=== PATIENT | male | born 1975 | race Caucasian/White ===

== ENCOUNTER 2022-04-19 12:25 | Inpatient (IN) | payer BC ==
[2022-04-19] MEDS ORDERED: SODIUM CHLORIDE 0.9% 500 ML 500 ML IV STA (12:34)
--- NOTE | 2022-04-19 12:57 | ED ---
General Adult HPI - General Chief complaint: Neuro Symptoms/Deficit Stated complaint: Dizziness Time Seen by Provider: 04/19/22 12:30 Source: patient, EMS, RN notes reviewed, old records reviewed Mode of arrival: EMS Limitations: no limitations - History of Present Illness Initial comments: This is a 47-year-old male presents emergency Department with the complaint of increased dizziness which appears to be vertigo he states and decreased ability to ambulate. Patient states 3 weeks ago he had a stroke with left-sided residual deficits. Patient states he went to rehab and he got considerably better he was able to walk at a rehab only using a cane. Patient states he had remaining dizziness but since Tuesday the dizziness is worse and his ability to walk is less than. Patient doesn't appreciate any actual new weakness but he is finding it more difficult to walk and he thinks is because of the significant increase in the dizziness. Patient denies headache. Patient denies any fever chills or cough per patient denies any chest pain palpitations difficulty breathing shortness of breath. Patient denies abdominal pain patient denies nausea vomiting diarrhea. - Related Data Home Medications Medication Instructions Recorded Confirmed hydroCHLOROthiazide [Hydrodiuril] 25 mg PO DAILY 02/27/14 04/19/22 Aspirin EC [Ecotrin Low Dose] 81 mg PO DAILY 04/19/22 04/19/22 Atorvastatin [Lipitor] 80 mg PO HS 04/19/22 04/19/22 Diclofenac Sodium Gel [Voltaren 2 gm TOPICAL DAILY 04/19/22 04/19/22 Gel] Magnesium Oxide [Mag-Ox] 400 mg PO BID 04/19/22 04/19/22 Meclizine [Antivert] 25 mg PO TID PRN 04/19/22 04/19/22 Vitamin B2 200 mg PO BID 04/19/22 04/19/22 amLODIPine BESYLATE/BENAZEPRIL 1 cap PO DAILY 04/19/22 04/19/22 [Lotrel 10-20 mg Capsule] Allergies Allergy/AdvReac Type Severity Reaction Status Date / Time No Known Allergies Allergy Verified 04/19/22 14:08 Review of Systems ROS Statement: Those systems with pertinent positive or pertinent negative responses have been documented in the HPI. ROS Other: All systems not noted in ROS Statement are negative. Past Medical History Past Medical History: CVA/TIA, Hypertension, Sleep Apnea/CPAP/BIPAP Additional Past Medical History / Comment(s): newly dx w/sleep apnea History of Any Multi-Drug Resistant Organisms: None Reported Past Surgical History: Appendectomy, Orthopedic Surgery Past Anesthesia/Blood Transfusion Reactions: No Reported Reaction Past Psychological History: No Psychological Hx Reported Smoking Status: Former smoker Past Alcohol Use History: Occasional Past Drug Use History: None Reported General Exam - General Exam Comments Initial Comments: GENERAL: Patient is well-developed and well-nourished. Patient is nontoxic and well- hydrated and is in mild distress. ENT: Neck is soft and supple. No significant lymphadenopathy is noted. Oropharynx is clear. Moist mucous membranes. Neck has full range of motion without eliciting any pain. EYES: The sclera were anicteric and conjunctiva were pink and moist. Extraocular movements were intact and pupils were equal round and reactive to light. Eyelids were unremarkable. PULMONARY: Unlabored respirations. Good breath sounds bilaterally. No audible rales rhonchi or wheezing was noted. CARDIOVASCULAR: There is a regular rate and rhythm without any murmurs gallops or rubs. ABDOMEN: Soft and nontender with normal bowel sounds. SKIN: Skin is clear with no lesions or rashes and otherwise unremarkable. NEUROLOGIC: Patient is alert and oriented x3. Cranial nerves II through XII are grossly intact. Motor and sensory are also intact. I did not appreciate any weakness comparing one side to the other. Normal speech, volume and content. Symmetrical smile. Patient's finger to nose bilaterally. MUSCULOSKELETAL: Normal extremities with adequate strength and full range of motion. LYMPHATICS: No significant lymphadenopathy is noted PSYCHIATRIC: Normal psychiatric evaluation. Limitations: no limitations Course Vital Signs 04/19/22 12:29 Temperature 98.1 F Pulse Rate 80 Respiratory 16 Rate Blood Pressure 129/95 O2 Sat by Pulse 98 Oximetry Medical Decision Making - Medical Decision Making EKG shows sinus rhythm at 74 bpm TX interval 288 QRSs 105 QT interval 365 QTC is 393. Patient's EKG shows elevation or depression. I spoke with Dr. Frye as he agreed to look at the scans and once he looked and scans he agreed that the patient needed to be admitted and he would be consult. I spoke with Dr. Mayorga he agreed to admit the patient admitted the patient wrote admitting orders. - Lab Data Result diagrams: 04/19/22 12:44 04/19/22 12:44 Lab Results 04/19/22 04/19/22 04/19/22 Range/Units 12:44 12:44 12:44 WBC 7.1 (3.8-10.6) k/uL RBC 4.84 (4.30-5.90) m/uL Hgb 16.4 (13.0-17.5) gm/dL Hct 46.6 (39.0-53.0) % MCV 96.3 (80.0-100.0) fL MCH 33.8 (25.0-35.0) pg MCHC 35.1 (31.0-37.0) g/dL RDW 11.6 (11.5-15.5) % Plt Count 246 (150-450) k/uL MPV 6.9 Neutrophils % 54 % Lymphocytes % 30 % Monocytes % 8 % Eosinophils % 5 % Basophils % 1 % Neutrophils # 3.9 (1.3-7.7) k/uL Lymphocytes # 2.1 (1.0-4.8) k/uL Monocytes # 0.5 (0-1.0) k/uL Eosinophils # 0.4 (0-0.7) k/uL Basophils # 0.1 (0-0.2) k/uL PT 9.9 (9.0-12.0) sec INR 0.9 (<1.2) APTT 22.7 (22.0-30.0) sec Sodium 140 (137-145) mmol/L Potassium 4.0 (3.5-5.1) mmol/L Chloride 104 (98-107) mmol/L Carbon Dioxide 28 (22-30) mmol/L Anion Gap 8 mmol/L BUN 13 (9-20) mg/dL Creatinine 0.79 (0.66-1.25) mg/dL Est GFR (CKD-EPI)AfAm >90 (>60 ml/min/1.73 sqM) Est GFR (CKD-EPI)NonAf >90 (>60 ml/min/1.73 sqM) Glucose 114 H (74-99) mg/dL Calcium 9.5 (8.4-10.2) mg/dL Magnesium 2.1 (1.6-2.3) mg/dL Total Bilirubin 0.6 (0.2-1.3) mg/dL AST 35 (17-59) U/L ALT 111 H (4-49) U/L Alkaline Phosphatase 97 (38-126) U/L Troponin I (0.000-0.034) ng/mL Total Protein 6.9 (6.3-8.2) g/dL Albumin 4.2 (3.5-5.0) g/dL 04/19/22 Range/Units 12:44 WBC (3.8-10.6) k/uL RBC (4.30-5.90) m/uL Hgb (13.0-17.5) gm/dL Hct (39.0-53.0) % MCV (80.0-100.0) fL MCH (25.0-35.0) pg MCHC (31.0-37.0) g/dL RDW (11.5-15.5) % Plt Count (150-450) k/uL MPV Neutrophils % % Lymphocytes % % Monocytes % % Eosinophils % % Basophils % % Neutrophils # (1.3-7.7) k/uL Lymphocytes # (1.0-4.8) k/uL Monocytes # (0-1.0) k/uL Eosinophils # (0-0.7) k/uL Basophils # (0-0.2) k/uL PT (9.0-12.0) sec INR (<1.2) APTT (22.0-30.0) sec Sodium (137-145) mmol/L Potassium (3.5-5.1) mmol/L Chloride (98-107) mmol/L Carbon Dioxide (22-30) mmol/L Anion Gap mmol/L BUN (9-20) mg/dL Creatinine (0.66-1.25) mg/dL Est GFR (CKD-EPI)AfAm (>60 ml/min/1.73 sqM) Est GFR (CKD-EPI)NonAf (>60 ml/min/1.73 sqM) Glucose (74-99) mg/dL Calcium (8.4-10.2) mg/dL Magnesium (1.6-2.3) mg/dL Total Bilirubin (0.2-1.3) mg/dL AST (17-59) U/L ALT (4-49) U/L Alkaline Phosphatase (38-126) U/L Troponin I <0.012 (0.000-0.034) ng/mL Total Protein (6.3-8.2) g/dL Albumin (3.5-5.0) g/dL Disposition Clinical Impression: Cerebrovascular accident (CVA) Disposition: ADMITTED IP TO THIS HOSP Referrals: Gómez Mcnair DO [Doctor of Osteopathic Medicine] - 1-2 days Time of Disposition: 15:29
[2022-04-19 13:12] LABS: Basophils # (A) 0.1 k/uL (0-0.2); Basophils % (A) 1 %; Eosinophils # (A) 0.4 k/uL (0-0.7); Eosinophils % (A) 5 %; HCT 46.6 % (39.0-53.0); HGB 16.4 gm/dL (13.0-17.5); Lymphocytes # (A) 2.1 k/uL (1.0-4.8); Lymphocytes % (A) 30 %; MCH 33.8 pg (25.0-35.0); MCHC 35.1 g/dL (31.0-37.0); MCV 96.3 fL (80.0-100.0); Mean Platelet Volume 6.9; Monocytes # (A) 0.5 k/uL (0-1.0); Monocytes % (A) 8 %; Neutrophils # (A) 3.9 k/uL (1.3-7.7); Neutrophils % (A) 54 %; Platelet Count 246 k/uL (150-450); RBC 4.84 m/uL (4.30-5.90); RDW 11.6 % (11.5-15.5); WBC 7.1 k/uL (3.8-10.6)
[2022-04-19 13:26] LABS: INR 0.9 (<1.2); Partial Thromboplastin Time 22.7 sec (22.0-30.0); Prothrombin Time 9.9 sec (9.0-12.0)
[2022-04-19 13:26] LABS: ALT 111 U/L (4-49); AST 35 U/L (17-59); African American GFR (CKD) >90 (>60 ml/min/1.73 sqM); Albumin 4.2 g/dL (3.5-5.0); Alkaline Phosphatase 97 U/L (38-126); Anion Gap 8 mmol/L; Blood Urea Nitrogen 13 mg/dL (9-20); Calcium 9.5 mg/dL (8.4-10.2); Carbon Dioxide 28 mmol/L (22-30); Chloride 104 mmol/L (98-107); Glucose 114 mg/dL (74-99); Magnesium 2.1 mg/dL (1.6-2.3); Non-African American GFR(CKD) >90 (>60 ml/min/1.73 sqM); Sodium 140 mmol/L (137-145); Total Bilirubin 0.6 mg/dL (0.2-1.3); Total Protein 6.9 g/dL (6.3-8.2)
--- NOTE | 2022-04-19 13:43 | CT ---
EXAMINATION TYPE: CT brain wo con DATE OF EXAM: 04/19/2022 COMPARISON: CT head from outside institution 03/28/2022 HISTORY: Dizziness, hx stroke [address] DLP: 1177.2 mGycm. Automated Exposure Control for Dose Reduction was Utilized. TECHNIQUE: CT scan of the head is performed without contrast. FINDINGS: There is no acute intracranial hemorrhage, mass effect, or midline shift identified. The ventricles and sulci are within normal limits in size. Abnormal low attenuation in the watershed ar ea left posterior parietal and occipital lobe shows a similar appearance consistent with prior infarc t. Cerebral vascular calcifications are present, tortuous vasculature noted at the level of the mahsa en magnum, there may be some mass effect on the brainstem. The globes are intact and the visualized s inuses are clear. IMPRESSION: No acute intracranial hemorrhage, mass effect, or midline shift is seen. Evidence of viri or cerebrovascular accident, possible mass effect on the brainstem as described, MRI may be of benefi t
--- NOTE | 2022-04-19 14:13 | XR ---
EXAMINATION TYPE: XR chest 2V DATE OF EXAM: 04/19/2022 COMPARISON: Chest x-ray 03/28/2022 HISTORY: Altered mental status, dizziness TECHNIQUE: Frontal and lateral views of the chest are obtained. FINDINGS: There is no focal air space opacity, pleural effusion, or pneumothorax seen. The cardiac silhouette size is within normal limits. There are overlying cardiac leads. Patient is rotated. The osseous structures are intact. IMPRESSION: No acute cardiopulmonary process.
--- NOTE | 2022-04-19 14:13 | CT ---
EXAMINATION TYPE: CT angio head neck DATE OF EXAM: 04/19/2022 HISTORY: Dizziness, hx stroke 2 weeks ago COMPARISON: CT dated 03/28/2022 CT DLP: 631.6 mGycm. Automated Exposure Control for Dose Reduction was Utilized. TECHNIQUE: CTA scan of the head and neck is performed with IV Contrast, patient injected with 65 mL of Isovue 370, axial images are obtained, coronal and sagittal reformatted images are reviewed. 3D re constructed images are created on an independent workstation and reviewed. FINDINGS: Carotid/Vascular Structures: Scattered arterial atherosclerotic calcification and tortuosity. Aberran t right subclavian artery indenting the posterior aspect of the esophagus. 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 The right vertebral artery ends mainly as a right-sided PICA. Reduced caliber of the V4 segment of the right vertebral artery distal to the origin of the right-sided PICA. 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 Nonopacified left MCA likely due to chronic occlusion with multiple collaterals see n at that location and opacified and M2 and M3 branches, likely chronic and also appreciated previous ly. No other significant arterial stenosis, other occlusion, dissection or aneurysm. Other: Patent major intracranial venous sinuses. Enlarged nasopharyngeal and palatine tonsils, please correlate clinically. Scattered subcentimeter bilateral cervical lymph nodes. Left parieto-occipital infarct, seen previously. 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 Acute small infarct cannot be excluded by this CT scan. Further MRI assessment can be considered. Other findings as described above.
[2022-04-19] MEDS ORDERED: ATORVASTATIN 80 MG TAB PO STA (15:29)
[2022-04-19] MEDS ORDERED: CLOPIDOGREL 75 MG TAB PO STA (15:29)
[2022-04-19] MEDS ORDERED: ASPIRIN 325 MG TAB PO STA (15:47)
--- NOTE | 2022-04-19 17:14 | P.CNNES ---
History of Present Illness Consult date: 04/19/22 Requesting physician: Art Otto Reason for Consult: CVA History of Present Illness: This is a 47-year-old gentleman with medical history of recent stroke in posterior circulation with residual right sided numbness and subtle left sided weakness, tobacco use who presented to our because of dizziness and off-balance. Patient is accompanied by his family members: his and parents). Patient stated that M 03/28/2022 patient was feeling dizzy he had the left-sided weakness and right-sided numbness and the was the taken to the [facility] and from there he was a shift to [facility] for escalation of care at. He was told he had posture circulation stroke and was told he had a clot in the back of the brain and a surgery was not done to retrieve the clot since she was told was in a critical region and because of risk involved. Patient had stroke workup at [facility]. Of note patient never received IV TPA since it seems that he was outside the window. A spirin 81 Lipitor 80 mg. He was also placed on event monitor for 2 weeks. He was hospitalized there for 4 days then was discharged to rehab to 2 weeks. Patient was walk-in drastically better and was using a cane and was doing well. He had residual right face numbness as well as right-sided numbness as well from his stroke He was discharged from rehab 04/13/2022. Then that this past Tuesday patient noticed that he has burning sensation over the left cheek region then was feeling dizzy. Next day use of feeling off balance and noticed he has pain in the right ear and felt his symptoms is progressively worse as an dizziness and his balance so decided to come the hospital. Regarding his event monitor he said that he just recently returned back last week. He still smoke max half a pack a day and stop smoking since his stroke of February 2022. His father had a stroke over the eye and also in his 4 years old and was told it was possibly due to uncontrolled hypertension. Some of the work-up during this visit in our facility consisted of Initial blood presure 129/95 CBC with diff is unremarakable. ALT is 111. Otherwise rest of chemistry is unremarkable. PT, PTT and INR are within normal limits. CT of the head is reported as no acute intracranial hemorrhage, mass effect or midline shift is seen. Evidence of prior cerebrovascular accident, possible mass effect on the brainstem as described, MRI may be of benefit. In the body reported it is reported as abnormal low attenuation in the watershed area in the left posterior parietal and occipital lobe consistent with a prior infarct. There is some mass effect on the brainstem. CT angiography of the head and neck was reported as occluded V4 segment of the left vertebral artery, mainstem of the left MCA (demonstrating multiple collateral and the (and the inferior aspect of basilar artery with markedly reduced caliber of the V4 segment of the right vertebral artery stable compared to February 2022 CT angiography. EKG is reported as sinus rhythm. Normal EKG. Review of Systems Review of system: The 12 point system was reviewed and apparent positive and negative per HPI. Past Medical History Past Medical History: CVA/TIA, Hypertension, Sleep Apnea/CPAP/BIPAP Additional Past Medical History / Comment(s): newly dx w/sleep apnea History of Any Multi-Drug Resistant Organisms: None Reported Past Surgical History: Appendectomy, Orthopedic Surgery Past Anesthesia/Blood Transfusion Reactions: No Reported Reaction Past Psychological History: No Psychological Hx Reported Smoking Status: Former smoker Past Alcohol Use History: Occasional Past Drug Use History: None Reported Medications and Allergies Home Medications Medication Instructions Recorded Confirmed Type hydroCHLOROthiazide [Hydrodiuril] 25 mg PO DAILY 02/27/14 04/19/22 History Aspirin EC [Ecotrin Low Dose] 81 mg PO DAILY 04/19/22 04/19/22 History Atorvastatin [Lipitor] 80 mg PO HS 04/19/22 04/19/22 History Diclofenac Sodium Gel [Voltaren 2 gm TOPICAL DAILY 04/19/22 04/19/22 History Gel] Magnesium Oxide [Mag-Ox] 400 mg PO BID 04/19/22 04/19/22 History Meclizine [Antivert] 25 mg PO TID PRN 04/19/22 04/19/22 History Vitamin B2 200 mg PO BID 04/19/22 04/19/22 History amLODIPine BESYLATE/BENAZEPRIL 1 cap PO DAILY 04/19/22 04/19/22 History [Lotrel 10-20 mg Capsule] Allergies Allergy/AdvReac Type Severity Reaction Status Date / Time No Known Allergies Allergy Verified 04/19/22 14:08 Physical Examination - Vital Signs Vital Signs: Vital Signs Temp Pulse Resp BP Pulse Ox 04/19/22 16:11 74 15 134/99 99 04/19/22 12:29 98.1 F 80 16 129/95 98 Intake and Output 04/19/22 04/19/22 04/19/22 06:59 14:59 22:59 Other: Weight 90.718 kg GENERAL: The patient is lying in bed and is not in acute distress. CHEST: The heart rate is regular rate rhythm. No murmurs to auscultation. LUNG: Clear to auscultation bilaterally no wheezing noted throughout. Not labored breathing. ABDOMEN/GI: Bowel sounds present in all 4 quadrants. No tenderness to palpation throughout. NEUROLOGICAL: Higher mental function: The patient is awake, alert, oriented to self, place and time. Patient is following commands. No aphasia and no neglect. Cranial nerves: The pupils are round, equal and reactive to light and accommodation. Visual matos are full to confrontation throughout. Extraocular movement is intact no nystagmus is noted. Facial sensation is decreased to touch over entire right side (old). The facial strength is minimal ptosis over left eye but otherwise normal throughout. Hearing is normal bilaterally to hand rub. Tongue is midline and moved [id number] without any difficulty. No dysarthria is noted. Shoulder shrug is normal bilaterally. Motor: Gait is feeling dizzy upon standing up and talking one step so had to abort it. The strength is 5 over 5 throughout. Normal tone and bulk. Cerebellum: Normal finger to nose heel to gaudalupe bilaterally. Sensation: Sensation is decreased to touch over entire right side (old). Reflexes (right/left): 2+ throughout. Plantars are mute bilaterally. Current NIH stroke scale: Total: 1 for numbness (old) Results - Laboratory Findings CBC and BMP: 04/19/22 12:44 04/19/22 12:44 Abnormal Lab Findings: Abnormal Labs 04/19/22 12:44 Glucose 114 H ALT 111 H Assessment and Plan Assessment: * Vertigo, off balance, left V2 pain likely due to TIA (from verbeobasilar insufficiency). Current NIH is 1 (numbness--old). Rule out acute stroke on MRI Brain. * Recent stroke with residual right sided numbness and subtle left sided weakness (posterior circulation and was told had clot that was in critical region but no surgery since risk outweighed benefit according to patient over at of 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 * Tobacco use and quit end of February 2022 (use to smoke 1/2 PPD) * History of family history of stroke (father in his 40's years old and had vision issue). Plan: I loaded the patient with Plavix 300mg once then started on Plavix 75mg daily and his ASA was increased to 325mg daily (from 81mg daily). He was given loading dose of ASA 325mg in ED and Lipitor 80mg once. Will restart Lipitor 80mg qhs. Ordered MRI of the brain stat I placed the patient on every 2 hours neuro checks and recommend the patient to be in the ICU for frequent neuro checks. I already spoke with the ICU attending regarding this. Lipid panel is ordered by the ED team and I ordered a limited 2-D echo. PT OT and HEARING CARE PRACTITIONER are consulted Placed on cardiac monitoring. We'll attempt to get record from the patient recent hospital visit at [facility] find out why patient stroke workup. Patient had a recent event monitor for 2 weeks and will attempt to find out the results of his event monitor., In the meantime, ordered factor V Leiden, antithrombin III. Recommend young stroke workup as an outpatient. If the patient has any worsening of his condition recommend repeating CT of the head and CT angiography of the head and neck and activating stroke code. We'll defer the rest of the medical management of the primary team For DVT prophylaxis I started the patient on subcu heparin 5000 units every 8 hours Patient to follow-up with a neurologist within 1-2 weeks as an outpatient. The plan was discussed with the patient and his family members who are bedside. Thank you for the consultation. Skip Frye M.D. Neuro-hospitalist Time with Patient: Greater than 30
--- NOTE | 2022-04-19 18:11 | HP ---
HISTORY AND PHYSICAL DATE OF SERVICE: 04/19/2022 CHIEF COMPLAINTS: Dizziness and weakness. HISTORY OF PRESENT ILLNESS: This 47-year-old gentleman with a past medical history of hypertension and sleep apnea had an episode of possibly posterior circulation stroke in February. Patient was airlifted from [place] to [facility], where intervention was not done because it was considered too risky. The details are not available at this time. In any case, the patient went home. Patient was able to walk with a walker. The patient today noticed increased weakness and dizziness and the patient came to [facility] and was admitted for further evaluation and treatment. The patient was evaluated by neurologist, Dr. Frye, and the patient will be transferred to ICU for continuous close monitoring with q.2 neuro checks at this time. His CT angio was also done in the ER which I reviewed personally; it showed occluded segment of the left vertebral artery and multiple collaterals. Left MCA was also noted. There is no history of any fever, rigors or chills at this time. A CT brain was also done which was again reviewed personally by me. It showed no acute changes. The patient is awaiting an MRI. PAST MEDICAL HISTORY: Recent vertebrobasilar stroke as mentioned earlier, hypertension, sleep apnea. HOME MEDICATIONS: Reviewed. They include HydroDIURIL 25 mg daily. Doses and the rest of the medications are reviewed. ALLERGIES: NONE. FAMILY HISTORY: No history of heart disease or strokes in the family. SOCIAL HISTORY: Previous history of smoking. Occasional alcohol intake. REVIEW OF SYSTEMS: Fourteen-point review of systems negative except as mentioned earlier. PHYSICAL EXAMINATION: Pulse is 80, blood pressure is 120/94, respirations 16. HEENT: Conjunctivae normal. NECK: No jugular venous distention. CARDIOVASCULAR: S1, S2 muffled. RESPIRATION: Breath sounds diminished at the bases. No rhonchi. No crackles. ABDOMEN: Soft, nontender. No mass palpable. LEGS: No edema. No swelling. NERVOUS SYSTEM: Higher functions as mentioned earlier. Minimal facial weakness and incoordination, gait ataxia present. SKIN: No ulcer, rash, bleeding. JOINTS: No active deforming arthropathy. LABS: CBC within normal limits. Glucose 114. Other labs, x-rays and CT scan reviewed personally. ASSESSMENT: 1. Acute brainstem stroke causing left-sided symptoms. 2. History of recent brainstem stroke with vertebral artery occlusion. 3. Hypertension. 4. Sleep apnea. RECOMMENDATIONS AND DISCUSSION: In this 47-year-old gentleman who presented with multiple complex medical issues, as mentioned earlier, at this time I recommend continuing the current medications. Continue with antiplatelet agents. DVT prophylaxis. I would also recommend neurology consultation, neuro checks, transfer to ICU. Consult Dr. Frye. Guarded prognosis because of the multiple complex medical issues. Further recommendations to follow. A copy of this dictation is being forwarded to Dr. Moyer, who is the primary physician. MMODL / IJN: [id number] / MTDD
[2022-04-19] MEDS: SODIUM CHLORIDE 0.9% 1,000 ML IV SCH (19:46)
[2022-04-19] MEDS ORDERED: NALOXONE 0.4 MG/ML 1 ML VIAL IV PRN (19:55)
[2022-04-19 20:15] LABS: Glucose,Whole Blood 86 mg/dL (70-110)
[2022-04-19 23:15] LABS: Appearance,Urine Clear (Clear); Bilirubin,Urine Negative (Negative); Blood,Urine Negative (Negative); Color,Urine Yellow; Glucose,Urine (UA) Negative (Negative); Ketones,Urine Negative (Negative); Leukocyte Esterase,Urine Negative (Negative); Nitrite,Urine Negative (Negative); PH, Urine 6.5 (5.0-8.0); Protein,Urine Negative (Negative); Specific Gravity,Urine 1.023 (1.001-1.035); Urobilinogen,Urine <2.0 mg/dL (<2.0)
[2022-04-19] MEDS: HEPARIN SODIUM,PORCINE/PF 5,000 UNIT/0.5 ML SYRINGE SQ SCH (23:23)
[2022-04-20] MEDS: SODIUM CHLORIDE 0.9% 1,000 ML IV SCH ×2 (05:48→20:16)
--- NOTE | 2022-04-20 06:14 | P.CNPUL ---
History of Present Illness Consult date: 04/20/22 Requesting physician: Nikita Mayorga Reason for consult: other Chief complaint: CVA. History of present illness: Pulmonary/critical care consult dated 04/20/2022. 47-year-old male who presented to the emergency department, with complaints of increased dizziness, and vertigo. He also admitted to being unsteady on his feet, with difficulty in ambulating. The patient apparently had a CVA 3 weeks ago and was at [facility]. I believe this was March 28. The patient was evaluated in our emergency room on April 19. The patient had right-sided weakness and numbness. Seen by neurology, and neurologist requested a bed for observation in the ICU. Currently, he's feeling reasonably well. He is not requiring any supplemental oxygen. He is getting saline at 75 mL an hour. He has a history of hypertension, sleep apnea, hyperlipidemia, and chronic tobacco dependence. CBC is normal. Sodium 140, potassium 4, chlorides 104, CO2 28, with a normal anion gap, BUN, and creatinine. The rest of his comprehensive metabolic profile looks normal. Urine is negative. Brain CT shows no acute intracranial hemorrhage, mass effect, or midline shift. There is an abnormal area noted in the left posterior parietal and occipital lobe, consistent with a prior infarct. CT angiogram showed an occluded V4 segment of the left vertebral artery, main stem of the left MCA, and the inferior aspect of the basilar artery with markedly reduced caliber V4 segment. Chest x-ray is normal. Review of Systems REVIEW OF SYSTEMS: CONSTITUTIONAL: [Negative.] NEUROLOGIC: Dizziness, weakness, vertigo, and unsteady gait. HEENT: [ Negative.] CARDIAC: [Negative.] PULMONARY: [Negative.] GI: [Negative.] : [Negative.] RHEUMATOLOGIC: [ Negative.] IMMUNOLOGIC: [ Negative.] ENDOCRINE: [Negative. ] DERMATOLOGIC: [Negative.] Past Medical History Past Medical History: CVA/TIA, Hypertension, Sleep Apnea/CPAP/BIPAP Additional Past Medical History / Comment(s): newly dx w/sleep apnea History of Any Multi-Drug Resistant Organisms: None Reported Past Surgical History: Appendectomy, Orthopedic Surgery Past Anesthesia/Blood Transfusion Reactions: No Reported Reaction Smoking Status: Former smoker Medications and Allergies Home Medications Medication Instructions Recorded Confirmed Type hydroCHLOROthiazide [Hydrodiuril] 25 mg PO DAILY 02/27/14 04/19/22 History Aspirin EC [Ecotrin Low Dose] 81 mg PO DAILY 04/19/22 04/19/22 History Atorvastatin [Lipitor] 80 mg PO HS 04/19/22 04/19/22 History Diclofenac Sodium Gel [Voltaren 2 gm TOPICAL DAILY 04/19/22 04/19/22 History Gel] Magnesium Oxide [Mag-Ox] 400 mg PO BID 04/19/22 04/19/22 History Meclizine [Antivert] 25 mg PO TID PRN 04/19/22 04/19/22 History Vitamin B2 200 mg PO BID 04/19/22 04/19/22 History amLODIPine BESYLATE/BENAZEPRIL 1 cap PO DAILY 04/19/22 04/19/22 History [Lotrel 10-20 mg Capsule] Allergies Allergy/AdvReac Type Severity Reaction Status Date / Time No Known Allergies Allergy Verified 04/19/22 14:08 Physical Exam Osteopathic Statement: *. No significant issues noted on an osteopathic structural exam other than those noted in the History and Physical/Consult. Vitals: Vital Signs Temp Pulse Pulse Resp BP BP Pulse Ox 04/20/22 05:00 66 16 92/71 97 04/20/22 04:00 98.1 F 67 20 104/71 96 04/20/22 03:00 71 16 103/72 95 04/20/22 02:00 71 16 109/76 95 04/20/22 01:00 74 16 97/60 94 L 04/20/22 00:00 98.2 F 77 13 112/76 95 04/19/22 23:00 76 16 123/87 94 L 04/19/22 22:00 76 17 139/103 94 L 04/19/22 21:00 77 15 131/102 96 04/19/22 20:18 96 04/19/22 20:00 98.3 F 79 10 L 131/102 96 04/19/22 18:36 74 15 103/75 100 04/19/22 16:11 74 15 134/99 99 04/19/22 12:29 98.1 F 80 16 129/95 98 Intake and Output 04/19/22 04/19/22 04/20/22 14:59 22:59 06:59 Intake Total 75 525 Output Total 750 Balance 75 -225 Intake: Intake, IV Titration 75 525 Amount Sodium Chloride 0.9% 1, 75 525 000 ml @ 75 mls/hr IV . [id number] [facility] Rx#:[id number] Output: Urine 750 Other: Voiding Method Urinal Urinal # Voids 1 Weight 90.718 kg 89 kg 91.7 kg No acute distress, oriented 3. HEENT examination is grossly unremarkable. Neck supple. Full range of motion. No adenopathy thyromegaly or neck vein distention. Cardiovascular examination reveals regular rhythm rate. S1-S2 normal. No S3 or S4. No discernible murmur noted. Heart rate 66 bpm. Lungs reveal clear breath sounds. Breath sounds are equal bilaterally. No adventitious lung sounds including wheezes rhonchi or crackles. Abdomen soft bowel sounds are heard. No masses or tenderness. Extremities are intact. No cyanosis clubbing or edema. Skin is without rash or lesion. Neurologic examination is grossly normal. 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 History of hypertension. History of sleep apnea syndrome. History of hyperlipidemia. Plan: Plan dated 04/20/2022. The patient was admitted to the intensive care unit for further monitoring and management. The patient apparently is doing relatively well according to the nurses and the patient himself. He is currently on room air. He is getting saline at 75 mL an hour. He's had no worsening of neurologic symptoms. Additional recommendations and suggestions are forthcoming. Neurology has seen the patient. Prognosis is guarded. The patient should probably be transferred back to the [facility]. Time with Patient: Greater than 30
[2022-04-20 07:54] LABS: Basophils # (A) 0.1 k/uL (0-0.2); Basophils % (A) 1 %; Eosinophils # (A) 0.3 k/uL (0-0.7); Eosinophils % (A) 5 %; HCT 44.7 % (39.0-53.0); HGB 15.5 gm/dL (13.0-17.5); Lymphocytes # (A) 1.7 k/uL (1.0-4.8); Lymphocytes % (A) 29 %; MCHC 34.7 g/dL (31.0-37.0); Mean Platelet Volume 6.8; Monocytes # (A) 0.5 k/uL (0-1.0); Monocytes % (A) 8 %; Neutrophils # (A) 3.1 k/uL (1.3-7.7); Neutrophils % (A) 53 %; Platelet Count 243 k/uL (150-450); RBC 4.57 m/uL (4.30-5.90); RDW 11.6 % (11.5-15.5); WBC 5.8 k/uL (3.8-10.6)
[2022-04-20 08:04] LABS: African American GFR (CKD) >90 (>60 ml/min/1.73 sqM); Anion Gap 12 mmol/L; Blood Urea Nitrogen 16 mg/dL (9-20); Calcium 8.9 mg/dL (8.4-10.2); Carbon Dioxide 24 mmol/L (22-30); Chloride 104 mmol/L (98-107); Glucose 124 mg/dL (74-99); Non-African American GFR(CKD) >90 (>60 ml/min/1.73 sqM); Sodium 140 mmol/L (137-145)
--- NOTE | 2022-04-20 09:24 | P.PN ---
Subjective Progress Note Date: 04/20/22 The patient is seen at bedside and feels he is doing drastically better today compared to yesterday. He stated yesterday prior to coming to hospital he was having diplopia, dizziness and off balance and feels better. He has some hiccups since his old stroke. Denies of any new neurological issues. Pending MRI Brain. Objective - Vital Signs Vital signs: Vital Signs Temp 97.8 F 04/20/22 08:00 Pulse 75 04/20/22 09:00 Resp 12 04/20/22 09:00 BP 123/89 04/20/22 09:00 Pulse Ox 96 04/20/22 09:00 FiO2 Intake & Output 04/19/22 04/20/22 04/20/22 18:59 06:59 18:59 Intake Total 675 150 Output Total 750 0 Balance -75 150 Weight 90.718 kg 91.7 kg Intake: IV 75 Sodium Chloride 0.9% 1, 75 000 ml @ 75 mls/hr IV . [id number] [facility] Rx#:[id number] Intake, IV Titration 675 75 Amount Sodium Chloride 0.9% 1, 675 75 000 ml @ 75 mls/hr IV . [id number] [facility] Rx#:[id number] Output: Urine 750 0 Other: Voiding Method Urinal Urinal # Voids 1 - Exam GENERAL: The patient is lying in bed and is not in acute distress. NEUROLOGICAL: Higher mental function: The patient is awake, alert, oriented to self, place and time. Patient is following commands. No aphasia and no neglect. Cranial nerves: The pupils are round, equal and reactive to light and accommodation. Visual matos are full to confrontation throughout. Extraocular movement is intact no nystagmus is noted. Facial sensation is decreased to touch over entire right side (old). The facial strength is minimal ptosis over left eye but otherwise normal throughout. Hearing is normal bilaterally to hand rub. Tongue is midline and moved [id number] without any difficulty. No dysarthria is noted. Shoulder shrug is normal bilaterally. Motor: The strength is 5 over 5 throughout. Normal tone and bulk. Cerebellum: Normal finger to nose heel to guadalupe bilaterally. Sensation: Sensation is decreased to touch over entire right side (old). Reflexes (right/left): 2+ throughout. Plantars are mute bilaterally. Some of the work-up during this visit in our facility consisted of: CT of the head is reported as no acute intracranial hemorrhage, mass effect or midline shift is seen. Evidence of prior cerebrovascular accident, possible mass effect on the brainstem as described, MRI may be of benefit. In the body reported it is reported as abnormal low attenuation in the watershed area in the left posterior parietal and occipital lobe consistent with a prior infarct. There is some mass effect on the brainstem. CT angiography of the head and neck was reported as occluded V4 segment of the left vertebral artery, mainstem of the left MCA (demonstrating multiple collateral and the (and the inferior aspect of basilar artery with markedly reduced caliber of the V4 segment of the right vertebral artery stable compared to February 2022 CT angiography. EKG is reported as sinus rhythm. Normal EKG. - Labs CBC & Chem 7: 04/20/22 07:13 04/20/22 07:13 Labs: Abnormal Lab Results - Last 24 Hours (Table) 04/19/22 04/20/22 Range/Units 12:44 07:13 Glucose 114 H 124 H (74-99) mg/dL ALT 111 H (4-49) U/L Assessment and Plan Assessment: * Vertigo, off balance, diplopia, left V2 pain likely due to TIA (from verbeobasilar insufficiency). Current NIH is 1 (numbness--old). Rule out acute stroke on MRI Brain. 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 * Tobacco use and quit end of February 2022 (use to smoke 1/2 PPD) * History of family history of stroke (father in his 40's years old and had vision issue). Plan: Continue Plavix 75mg daily (started during this admission) and ASA 325mg daily (was increased during this admission from 81mg daily). Conttinue Lipitor 80mg qhs. Ordered MRI of the brain stat and is pending. Continue every 2 hours neuro checks Lipid panel and limited 2-D echo: pending. PT OT and [employer] are consulted Continue cardiac monitoring. Pending record from the patient recent hospital visit at [facility] find out why patient stroke workup. Patient had a recent event monitor for 2 weeks and will attempt to find out the results of his event monitor., In the meantime, ordered factor V Leiden, antithrombin III. Recommend young stroke workup as an outpatient. Recommend patient to follow-up with Dr. Pedraza (neuro-intervention) [id number]. If the patient has any worsening of his condition recommend repeating CT of the head and CT angiography of the head and neck and activating stroke code. We'll defer the rest of the medical management of the primary team For DVT prophylaxis On subcu heparin 5000 units every 8 hours Patient to follow-up with a neurologist within 1-2 weeks as an outpatient (he will attempt to follow-up with [facility] Neurology team). If the patient continues to be doing well he can be transferred to neurology floors. The plan was discussed with the patient and his nurse. Skip Frye M.D. Neuro-hospitalist Time with Patient: Less than 30
[2022-04-20] MEDS: HEPARIN SODIUM,PORCINE/PF 5,000 UNIT/0.5 ML SYRINGE SQ SCH ×3 (09:28→23:03)
[2022-04-20] MEDS: ASPIRIN 325 MG TAB PO SCH (09:28)
[2022-04-20] MEDS: PANTOPRAZOLE 40 MG/10 ML VIAL IV SCH (09:28)
--- NOTE | 2022-04-20 11:10 | MR ---
MR brain without contrast HISTORY: Stroke, dizziness, vertebrobasilar insufficiency Multiplanar multisequence imaging through the brain Correlation to CT brain 04/19/2022 Previously identified mass effect on the region of the medulla due to the tortuous vertebrobasilar sy stem seen on prior CT is again noted. There is no restricted diffusion. The site of patient's previou s infarct is noted on CT the posterior occipital, left parietal region there is some scoliosis, incre ased signal on T2 and inversion recovery sequence. External capsule region show some probable encepha lomalacia on the left. There are expected vascular flow voids. Cerebellopontine angles, corpus callos um, pituitary, cervical medullary junction are within normal limits. There is no hemorrhage or hydroc ephalus. Orbits show symmetric appearance. Ethmoid air cells and maxillary sinuses show some mild inf lammatory change. IMPRESSION: Dolichoectasia vertebral basilar system, correlate for compressive symptoms at the level of the lingula. Chronic cerebral vascular accident change again noted.
[2022-04-20 11:16] LABS: Chol/HDL Ratio 3.08 Ratio; LDL Cholesterol,Calculated 35.5 mg/dL (0.0-131.0)
--- NOTE | 2022-04-20 11:27 | CA ---
Transthoracic Echo Report Name: Iggy Pollard Age: 47 Gender: M : 1975 Exam Date: 04/20/2022 09:34 Exam Location: [place] Echo Ht (in): 72 Wt (lb): 202 Ordering Physician: Skip Frye MD Attending/Referring Phys: Rubber Turner Taya Payton RDCS Procedure CPT: Indications: limited for stroke. Cardiac Hx: Echo done at [facility] 04/[facility]: Limited Echo for TIA Technical Quality: Good Contrast 1: N/A Total Dose (mL): Contrast 2: Total Dose (mL): MEASUREMENTS (Male / Female) Normal Values FINDINGS Left Ventricle Normal Left ventricular size, systolic function with no obvious regional wall motion abnormalities.left ventricular ejection fraction is estimated at 50-55 %. Right Ventricle Right Atrium Left Atrium Can't exclude possible PFO. Mitral Valve Aortic Valve Tricuspid Valve Pulmonic Valve Pericardium Aorta Normal size aortic root and proximal ascending aorta. CONCLUSIONS Normal LV size and systolic function Previewed by: Dr. Troy Vera MD (Electronically Signed) Final Date: 20 April 2022 11:26
[2022-04-20] MEDS ORDERED: MECLIZINE 25 MG TAB PO PRN (12:07)
[2022-04-20] MEDS: hydroCHLOROthiazide 25 MG TAB PO SCH (12:36)
[2022-04-20] MEDS: lisinopriL 20 MG TAB PO SCH (12:36)
[2022-04-20] MEDS: amLODIPine 10 MG TAB PO SCH (12:36)
--- NOTE | 2022-04-20 15:10 | PN ---
PROGRESS NOTE DATE OF SERVICE: 04/20/2022 This 47-year-old gentleman who had a previous vertebrobasilar stroke was evaluated at [facility]. Patient having increasing weakness suggestive of stroke. The patient came to [facility] and being closely monitored in ICU at this time with neuro checks. Neurology following the patient closely. MRA showed a dolichoectasia vertebrobasilar system and features of strokes also. The patient being closely monitored. PAST MEDICAL HISTORY: Reviewed. REVIEW OF SYSTEMS: 14-point review of systems is negative except as mentioned earlier. CURRENT MEDICATIONS: Reviewed and include: aspirin, Lipitor, doses reviewed. PHYSICAL EXAMINATION: Pulse is 81, blood pressure 133/89, respirations 20. HEENT: Conjunctivae is normal. Neck: No JVD. Cardiovascular: S1, S2 muffled. Respirations: Breath sounds diminished in the bases. Scattered rhonchi. Abdomen: Soft. Legs are no edema. Nervous system: Finger-nose incoordination, left hand. Gait ataxia present. LABS: CBC within normal limits. Cholesterol is 194, HDL is 35.7. ASSESSMENT: 1. Acute brainstem stroke causing left-sided symptoms. 2. History of recent brainstem stroke with vertebrobasilar artery occlusion. 3. Hypertension. 4. Sleep apnea. 5. Dolichoectasia of the vertebrobasilar system. 6. Gait dysfunction. RECOMMENDATIONS AND DISCUSSION: Recommend to continue current medications, management and symptomatic treatment. Continue the antiplatelet agents. Continue with Lipitor and closely follow with Neurology. Guarded prognosis. Further recommendations to follow. DVT prophylaxis. See orders for details. I discussed with the patient. Prognosis guarded. I also recommend close followup with [facility] Neurology. Discussed with family and patient. MMODL / IJN: [id number] /
[2022-04-20] MEDS: MAGNESIUM OXIDE 400 MG TAB PO SCH (20:11)
[2022-04-20] MEDS ORDERED: VITAMIN B2 PO SCH (21:00)
[2022-04-20] MEDS ORDERED: ATORVASTATIN 80 MG TAB PO SCH (21:00)
[2022-04-21 08:09] LABS: Basophils # (A) 0.1 k/uL (0-0.2); Basophils % (A) 1 %; Eosinophils # (A) 0.3 k/uL (0-0.7); Eosinophils % (A) 6 %; HCT 45.8 % (39.0-53.0); HGB 15.5 gm/dL (13.0-17.5); Lymphocytes # (A) 1.6 k/uL (1.0-4.8); Lymphocytes % (A) 28 %; MCH 32.9 pg (25.0-35.0); MCHC 33.7 g/dL (31.0-37.0); MCV 97.5 fL (80.0-100.0); Mean Platelet Volume 6.8; Monocytes # (A) 0.4 k/uL (0-1.0); Monocytes % (A) 7 %; Neutrophils # (A) 3.2 k/uL (1.3-7.7); Neutrophils % (A) 57 %; Platelet Count 258 k/uL (150-450); RDW 11.5 % (11.5-15.5); WBC 5.7 k/uL (3.8-10.6)
[2022-04-21 08:36] LABS: African American GFR (CKD) >90 (>60 ml/min/1.73 sqM); Anion Gap 7 mmol/L; Blood Urea Nitrogen 16 mg/dL (9-20); Calcium 8.9 mg/dL (8.4-10.2); Carbon Dioxide 27 mmol/L (22-30); Chloride 103 mmol/L (98-107); Glucose 221 mg/dL (74-99); Non-African American GFR(CKD) >90 (>60 ml/min/1.73 sqM); Potassium 3.9 mmol/L (3.5-5.1); Sodium 137 mmol/L (137-145)
[2022-04-21] MEDS ORDERED: CLOPIDOGREL 75 MG TAB PO SCH (09:00)
[2022-04-21] MEDS: lisinopriL 20 MG TAB PO SCH (09:33)
[2022-04-21] MEDS: ASPIRIN 325 MG TAB PO SCH (09:33)
[2022-04-21] MEDS: hydroCHLOROthiazide 25 MG TAB PO SCH (09:33)
[2022-04-21] MEDS: PANTOPRAZOLE 40 MG/10 ML VIAL IV SCH (09:33)
[2022-04-21] MEDS: HEPARIN SODIUM,PORCINE/PF 5,000 UNIT/0.5 ML SYRINGE SQ SCH (09:33)
[2022-04-21] MEDS: SODIUM CHLORIDE 0.9% 1,000 ML IV SCH (09:34)
[2022-04-21] MEDS: amLODIPine 10 MG TAB PO SCH (09:34)
[2022-04-21] MEDS: MAGNESIUM OXIDE 400 MG TAB PO SCH (09:34)
--- NOTE | 2022-04-21 10:40 | P.PN ---
Subjective Progress Note Date: 04/21/22 Principal diagnosis: CVA. Pulmonary/critical care consult dated 04/20/2022. 47-year-old male who presented to the emergency department, with complaints of increased dizziness, and vertigo. He also admitted to being unsteady on his feet, with difficulty in ambulating. The patient apparently had a CVA 3 weeks ago and was at [facility]. I believe this was March 28. The patient was evaluated in our emergency room on April 19. The patient had right-sided weakness and numbness. Seen by neurology, and neurologist requested a bed for observation in the ICU. Currently, he's feeling reasonably well. He is not requiring any supplemental oxygen. He is getting saline at 75 mL an hour. He has a history of hypertension, sleep apnea, hyperlipidemia, and chronic tobacco dependence. CBC is normal. Sodium 140, potassium 4, chlorides 104, CO2 28, with a normal anion gap, BUN, and creatinine. The rest of his comprehensive metabolic profile looks normal. Urine is negative. Brain CT shows no acute intracranial hemorrhage, mass effect, or midline shift. There is an abnormal area noted in the left posterior parietal and occipital lobe, consistent with a prior infarct. CT angiogram showed an occluded V4 segment of the left vertebral artery, main stem of the left MCA, and the inferior aspect of the basilar artery with markedly reduced caliber V4 segment. Chest x-ray is normal. Progress note dated 04/21/2022. 47-year-old male seen yesterday in consultation for posterior circulation CVA and vertebrobasilar insufficiency. The patient is doing much better. He's on room air. No IV fluids. The patient's neurologic complaints have dissipated. The patient will be following up with a neurologist at [facility]. He has a history of hypertension, sleep apnea, hyperlipidemia, and chronic tobacco dependence. The patient is counseled about the importance of tobacco cessation. The patient may be discharged today, or transferred down to the floor. CBC is normal. Electrolyte profile is normal. Blood glucose 221. Brain MRI done yesterday shows significant abnormalities in the vertebrobasilar system, with chronic cerebrovascular changes Objective - Vital Signs Vital signs: Vital Signs Temp 98.3 F 04/21/22 04:00 Pulse 80 04/21/22 07:00 Resp 18 04/21/22 07:00 BP 100/70 04/21/22 07:00 Pulse Ox 94 L 04/21/22 00:00 FiO2 Intake & Output 04/20/22 04/21/22 04/21/22 18:59 06:59 18:59 Intake Total 875 1280 Output Total 600 Balance 275 1280 Weight 93.8 kg Intake: IV 300 Sodium Chloride 0.9% 1, 300 000 ml @ 75 mls/hr IV . [id number] [facility] Rx#:[id number] Intake, IV Titration 75 Amount Sodium Chloride 0.9% 1, 75 000 ml @ 75 mls/hr IV . [id number] [facility] Rx#:[id number] Oral 500 1280 Output: Urine 600 Other: Voiding Method Urinal Urinal # Voids 2 0 - Exam No acute distress, oriented 3. HEENT examination is grossly unremarkable. Neck supple. Full range of motion. No adenopathy thyromegaly or neck vein distention. Cardiovascular examination reveals regular rhythm rate. S1-S2 normal. No S3 or S4. No discernible murmur noted. Heart rate 80 bpm. Lungs reveal clear breath sounds. Breath sounds are equal bilaterally. No adventitious lung sounds including wheezes rhonchi or crackles. Abdomen soft bowel sounds are heard. No masses or tenderness. Extremities are intact. No cyanosis clubbing or edema. Skin is without rash or lesion. Neurologic examination is grossly normal. 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 History of hypertension. History of sleep apnea syndrome. History of hyperlipidemia. Plan: Plan dated 04/20/2022. The patient was admitted to the intensive care unit for further monitoring and management. The patient apparently is doing relatively well according to the nurses and the patient himself. He is currently on room air. He is getting saline at 75 mL an hour. He's had no worsening of neurologic symptoms. Additional recommendations and suggestions are forthcoming. Neurology has seen the patient. Prognosis is guarded. The patient should probably be transferred back to the [facility]. Plan dated 04/21/2000 The patient's doing very well. The patient may be discharged from the hospital, or transferred down to the general medical floor. The pulmonary critical care standpoint, the patient's very stable. Moving forward, we'll see the patient on ly as needed. Labs x-rays and medications are reviewed. Prognosis is guarded. The patient will follow with a neurologist from the [facility]. Time with Patient: Less than 30
[2022-04-21 11:36] LABS: Anti-Thrombin III Antigen 93 % (80 - 120)
[2022-04-21 12:51] VITALS: BP 117/83; RESP 13; TEMP 98
--- NOTE | 2022-04-21 14:40 | P.PN ---
Subjective Progress Note Date: 04/21/22 The patient is seen at bedside and continues to be doing well compared to his initial presentation. Objective - Vital Signs Vital signs: Vital Signs Temp 98.0 F 04/21/22 12:00 Pulse 73 04/21/22 13:00 Resp 13 04/21/22 12:00 BP 117/83 04/21/22 12:00 Pulse Ox 98 04/21/22 12:00 FiO2 Intake & Output 04/20/22 04/21/22 04/21/22 18:59 06:59 18:59 Intake Total 875 1280 Output Total 600 0 Balance 275 1280 0 Weight 93.8 kg Intake: IV 300 Sodium Chloride 0.9% 1, 300 000 ml @ 75 mls/hr IV . [id number] CONSUELO Rx#:[id number] Intake, IV Titration 75 Amount Sodium Chloride 0.9% 1, 75 000 ml @ 75 mls/hr IV . [id number] CONSUELO Rx#:[id number] Oral 500 1280 Output: Urine 600 0 Other: Voiding Method Urinal Urinal Toilet # Voids 2 0 1 # Bowel Movements 1 - Exam GENERAL: The patient is lying in bed and is not in acute distress. NEUROLOGICAL: Higher mental function: The patient is awake, alert, oriented to self, place and time. Patient is following commands. No aphasia and no neglect. Cranial nerves: The pupils are round, equal and reactive to light and accommodation. Visual matos are full to confrontation throughout. Extraocular movement is intact no nystagmus is noted. Facial sensation is decreased to touch over entire right side (old). The facial strength is minimal ptosis over left eye but otherwise normal throughout. Hearing is normal bilaterally to hand rub. Tongue is midline and moved [id number] without any difficulty. No d ysarthria is noted. Shoulder shrug is normal bilaterally. Motor: The strength is 5 over 5 throughout. Normal tone and bulk. Cerebellum: Normal finger to nose heel to guadalupe bilaterally. Sensation: Sensation is decreased to touch over entire right side (old). Reflexes (right/left): 2+ throughout. Plantars are mute bilaterally. Some of the work-up during this visit in our facility consisted of: Lipid panel: TG 194, Cholestrol 110, LDL35 and HDL 35. CT of the head is reported as no acute intracranial hemorrhage, mass effect or midline shift is seen. Evidence of prior cerebrovascular accident, possible mass effect on the brainstem as described, MRI may be of benefit. In the body reported it is reported as abnormal low attenuation in the watershed area in the left posterior parietal and occipital lobe consistent with a prior infarct. There is some mass effect on the brainstem. CT angiography of the head and neck was reported as occluded V4 segment of the left vertebral artery, mainstem of the left MCA (demonstrating multiple collateral and the (and the inferior aspect of basilar artery with markedly reduced caliber of the V4 segment of the right vertebral artery stable compared to February [address]22 CT angiography. EKG is reported as sinus rhythm. Normal EKG. 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 Chronic cerebral vascular accident change again noted. - Labs CBC & Chem 7: 04/21/22 07:52 04/21/22 07:52 Labs: Abnormal Lab Results - Last 24 Hours (Table) 04/21/22 Range/Units 07:52 Glucose 221 H (74-99) mg/dL Assessment and Plan Assessment: * TIA (sympotoms of Vertigo, off balance, diplopia, left V2 pain likely due to TIA (from verbeobasilar insufficiency). Current NIH is 1 (numbness--old). 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 * Tobacco use and quit end of February 2022 (use to smoke 1/2 PPD) * History of family history of stroke (father in his 40's years old and had vision issue). Plan: Continue Plavix 75mg daily (started during this admission) and ASA 325mg daily (was increased during this admission from 81mg daily). Continue Lipitor 80mg qhs. 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 Chronic cerebral vascular accident change again noted. I reviewed the images with Dr. Landers and he states that the patient appears to have no acute or subacute ischemia over the left medullary and it seems more old. He does agree there is a compression on the left medullary because of dolchoectasia vertebral basilary system. I discussed the case with Dr. Moya and he reviewed images and feels he rupture plaques on brainstem vs ???rupture aneurysm. He stated to continue ASA and Plavix. He will see patient as outpatient within 4-6 and he will possible get further imaging. Ordered factor V Leiden, antithrombin III, protein C/S antigen and activity, MMA, homocystein, lupus anticoagulant, MMA, Prothrombin 2010, VW factor, lupus anticoagulant, DEEDEE, Recommend other young stroke workup as an outpatient. Recommend patient to follow-up with Dr. Moya (neuro-intervention) [phone]. Continue every neuro checks PT OT and FORM GRADER OPERATOR are consulted Continue cardiac monitoring. Pending record from the patient recent hospital visit at [facility] find out why patient stroke workup. Patient had a recent event monitor for 2 weeks and will attempt to find out the results of his event monitor., We'll defer the rest of the medical management of the primary team For DVT prophylaxis On subcu heparin 5000 units every 8 hours Patient to follow-up with a neurologist within 1-2 weeks as an outpatient (he will attempt to follow-up with [facility] Neurology team). The plan is discussed with patient and his nurse. Otherwise no further work-up and patient is clear for discharge. If the patient has any worsening of his symptoms he is to come back to ED and he will intervention neurology team to be contacted to facilitate transfer for escalation of care per Dr. Moya. Skip Frye M.D. Neuro-hospitalist Time with Patient: Less than 30
[2022-04-21 15:05] VITALS: PULSE 76
--- NOTE | 2022-04-22 10:14 | P.DS ---
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 Patient will follow-up with Dr. Moyer in the outpatient setting upon discharge. Patient is to continue aspirin and Plavix and statin and will need neurology follow-up in the outpatient setting. Total time taken is greater than 35 minutes. Hospital course This is -year-old male who was recently admitted with increasing weakness suggestive of a stroke and has a previous vertebrobasilar stroke evaluated at the [facility]. Patient was seen and evaluated by neurology here recommending continued outpatient follow-up and patient will be continued on aspirin and Plavix along with statin. Patient also seeking second opinions other than [facility] and resources were provided for neurology interventionalists. Patient is feeling better and would like to go home today. at the bedside and questions and concerns were answered. Patient instructed to continue to keep scheduled appointments and has appointment with Dr. Moyer his primary care provider on Tuesday. Currently no reports of chest pain, shortness of breath, or palpitations. Patient is afebrile. No reports of nausea or vomiting and patient is tolerating diet. Patient will be discharged home today. On exam vital signs are stable. Cardio S1, S2 are muffled. Respiratory system shows diminished breath sounds at the bases with no wheezing or rhonchi noted. Abdomen is soft and nontender. Nervous system shows no focal deficits. Please refer to medication reconciliation sheet for a list of medications. The impression and plan of care has been dictated by Rakel Vargas, Nurse Practitioner as directed. Dr. Mukesh MD I have performed a history and examination and MDM of this patient, discussed the same with the dictator, and agree with the dictator's assessment and plan as written ,documented as a scribe. Based on total visit time, I have performed more than 50% of the visit. Patient Condition at Discharge: Stable Plan - Discharge Summary Discharge Rx Participant: No New Discharge Prescriptions: New Aspirin 325 mg PO DAILY #30 tab Clopidogrel [Plavix] 75 mg PO DAILY 30 Days #30 tab Continue hydroCHLOROthiazide [Hydrodiuril] 25 mg PO DAILY Magnesium Oxide [Mag-Ox] 400 mg PO BID amLODIPine BESYLATE/BENAZEPRIL [Lotrel 10-20 mg Capsule] 1 cap PO DAILY Vitamin B2 200 mg PO BID Diclofenac Sodium Gel [Voltaren Gel] 2 gm TOPICAL DAILY Meclizine [Antivert] 25 mg PO TID PRN PRN Reason: DIZZINESS Atorvastatin [Lipitor] 80 mg PO HS Discontinued Aspirin EC [Ecotrin Low Dose] 81 mg PO DAILY Discharge Medication List hydroCHLOROthiazide [Hydrodiuril] 25 mg PO DAILY 02/27/14 [History] Atorvastatin [Lipitor] 80 mg PO HS 04/19/22 [History] Diclofenac Sodium Gel [Voltaren Gel] 2 gm TOPICAL DAILY 04/19/22 [History] Magnesium Oxide [Mag-Ox] 400 mg PO BID 04/19/22 [History] Meclizine [Antivert] 25 mg PO TID PRN 04/19/22 [History] Vitamin B2 200 mg PO BID 04/19/22 [History] amLODIPine BESYLATE/BENAZEPRIL [Lotrel 10-20 mg Capsule] 1 cap PO DAILY 04/19/22 [History] Aspirin 325 mg PO DAILY #30 tab 04/21/22 [Rx] Clopidogrel [Plavix] 75 mg PO DAILY 30 Days #30 tab 04/21/22 [Rx] Follow up Appointment(s)/Referral(s): Gómez Mcnair DO [Doctor of Osteopathic Medicine] - 1-2 days () Kilo Moyer MD [Primary Care Provider] - 1 Week Patient Instructions/Handouts: Transient Ischemic Attack (DC) Activity/Diet/Wound Care/Special Instructions: Please call Dr. Orozco, neuro-intervention, to make a follow up appointment for 1-2 weeks [phone] Keep appointment with your [facility] neurologist. Continue taking medications as prescribed Follow-up with primary care provider at scheduled appointment on Tuesday Follow-up with neurosurgeon as discussed Discharge Disposition: HOME SELF-CARE
[2022-04-22 10:31] LABS: APTT 35 Sec(s) (<43); Dilute Russell Viper Venom 26 Sec(s) (<44); Protein S Antigen 105 % (50 - 140)
[2022-04-23 10:31] LABS: Protein C (Activity) 118 % (71-138)
--- NOTE | 2022-05-18 06:20 | CDI ---
Documentation Clarification Form Date: 05/18/22 From: Malia Andersen Admit Date: 04/19/2022 03:47:00 PM Patient Name: Iggy Pollard Visit Number: [id number] Discharge Date: 04/21/2022 04:20:00 PM ATTENTION: The Clinical Documentation Specialists (CDI) and [facility] Coding Staff appreciate your assistance in clarifying documentation. Please respond to the clarification below the line at the bottom and electronically sign. The CDI & [facility] Coding staff will review the response and follow-up if needed. Please note: Queries are made part of the Legal Health Record. If you have any questions, please contact the author of this message via ITS. Dr. Nikita Mayorga, Conflicting documentation has been found in the medical record. As attending physician, please provide clarification. Per Dr Frye 04/21 PN - * TIA (symptoms of Vertigo, off balance, diplopia, left V2 pain likely due to TIA (from verbeobasilar insufficiency). Current NIH is 1 (numbness--old). 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 Per your DS - Acute brainstem stroke causing left-sided symptoms. History of recent brainstem stroke with vertebrobasilar artery occlusion History/Risk Factors: left hemiplegia following cerebral infarction, HTN, HLD, sleep apnea, cig smoker Clinical Indicators: The patient today noticed increased weakness and dizziness and the patient came to [facility] and was admitted for further evaluation and treatment. Treatment: ICU for continuous close monitoring w q 2 neuro checks, CT angio, CT brain, MRI Please clarify which diagnosis is most appropriate: [ ] Vertebro-basilar artery syndrome [ ] Acute brainstem stroke causing left sided symptoms [ ] Other (please specify) [ ] Unable to determine Acute brainstem stroke causing left sided symptoms MTDD
== END 2022-04-21 16:20 | disposition home or self-care (01) | DRG 65 ==
LOC: EC 12:25 → 3SCARD 15:47 → 2SICU 17:44
PROVIDERS: ADMIT Hospitalist; ATTEND Hospitalist
DX: I63.9 Cerebral infarction, unspecified (principal); G45.0 Vertebro-basilar artery syndrome; I69.354 Hemiplegia and hemiparesis following cerebral infarction affecting left non-dominant side; R29.701 NIHSS score 1; Z28.310 Unvaccinated for COVID-19; I10 Essential (primary) hypertension; E78.5 Hyperlipidemia, unspecified; G47.30 Sleep apnea, unspecified; H92.01 Otalgia, right ear; R06.6 Hiccough; F17.210 Nicotine dependence, cigarettes, uncomplicated; Z71.6 Tobacco abuse counseling; Z79.82 Long term (current) use of aspirin; Z79.899 Other long term (current) drug therapy; Z90.49 Acquired absence of other specified parts of digestive tract; Z92.89 Personal history of other medical treatment; Z82.3 Family history of stroke
CPT/HCPCS: 36415; 70450; 70496; 70498; 70551; 71046; 80048; 80053; 80061; 81003; 81240; 81241; 83090; 83735; 83921; 84484; 85025; 85246; 85300; 85301; 85302; 85303; 85305; 85306; 85610; 85613; 85730; 86038; 93005; 93308; 96360; 96361; 99285

== ENCOUNTER → 2023-12-02 | Outpatient (CLI) | payer BC ==
[2023-12-03 03:36] LABS: C Reactive Protein 1.4 mg/dL (0.00-0.80)
[2023-12-03 04:39] LABS: Cardiolipin Ab IgG Interp Negative (Negative); Cardiolipin Ab IgM Interp Negative (Negative); Cardiolipin IgA Antibody <2.0 U/mL; Cardiolipin IgM Antibody <1.5 U/mL
== END | disposition home or self-care (01) ==
LOC: LABWHC1 15:53
PROVIDERS: ATTEND Psychiatry & Neurology Neurology
DX: I67.9 Cerebrovascular disease, unspecified (principal); D68.59 Other primary thrombophilia
CPT/HCPCS: 36415; 82607; 83090; 85613; 85652; 85730; 86038; 86140; 86147

== ENCOUNTER → 2023-12-21 | Outpatient (CLI) | payer BC | END | disposition home or self-care (01) | LOC: LABWHC1 15:44 | PROVIDERS: ATTEND Psychiatry & Neurology Neurology | DX: I63.9 Cerebral infarction, unspecified (principal); D68.59 Other primary thrombophilia | CPT/HCPCS: 36415; 83090 ==

== ENCOUNTER → 2024-02-21 | Outpatient (CLI) | payer BC ==
--- NOTE | 2024-02-21 18:54 | CT ---
EXAMINATION TYPE: CT soft tissue neck w con DATE OF EXAM: 02/21/2024 COMPARISON: None HISTORY: Hx of stroke x2yrs ago. Pt c/o left side weakness and SOB. Pt states his doctor felt a lump/ mass on left side of neck. CT DLP: 886.4 mGycm CONTRAST: Patient injected with 100ml mL of Isovue 300. TECHNIQUE: Axial images at 3 mm thick sections. Reconstructed images in the coronal plane and sagitt al plane are reviewed. FINDINGS: Limited CT sections are obtained the lung apices. The lung apices appear clear. CT neck: The torus tubarius and fossa of Rosenmuller are normal. Almond Paste Molder spaces are normal. Para nasal sinuses and mastoid air cells are clear. Parotid glands appear normal and symmetrical. Submandibular glands, are normal. Parapharyngeal spac es are normal. No suspicious adenopathy is evident. There is fullness to the hypopharynx. Discrete mass is not identified. Direct visualization is recomm ended. Epiglottis appears normal on the sagittal plane. Prevertebral space appears normal. There is asymmetry of the vocal cords with some medial displacement of the left vocal cord. Thyroid as visualized is normal. Osseous structures are normal. IMPRESSION: 1. There is some fullness through the hypopharynx. A distinct mass is not identified. Visualization is recommended. 2. Focal asymmetry of the left vocal cord with medial displacement of the mid left vocal cord. 3. No discrete mass to account for palpable abnormality left
== END | disposition home or self-care (01) ==
LOC: RADCTMAIN 15:38
PROVIDERS: ATTEND Otolaryngology
DX: J38.3 Other diseases of vocal cords (principal); R22.1 Localized swelling, mass and lump, neck; R30.0 Dysuria; R05.9 Cough, unspecified; R49.0 Dysphonia; R53.1 Weakness; R06.02 Shortness of breath; Z86.73 Personal history of transient ischemic attack (TIA), and cerebral infarction without residual deficits
CPT/HCPCS: 70491; Q9967

== ENCOUNTER 2024-03-09 09:12 | Day surgery (SDC) | payer BC ==
--- NOTE | 2024-03-08 20:37 | HP ---
HISTORY AND PHYSICAL CHIEF COMPLAINT: Hypopharyngeal mass. HISTORY OF PRESENT ILLNESS: This patient is a 49-year-old male, who was recently seen in my office complaining of having a fullness in the back of his throat and also left neck mass. The patient quit smoking, half a pack cigarettes approximately 2 years ago and has not used any tobacco products since that time. At the time that he was seen in my office clinical examination revealed deep palpation of the neck suggested a mass in the lower third of the neck/larynx. A CT scan of the neck was performed and it showed evidence of a fullness in the hypopharynx in the region of the left true vocal cord. Because of his history of heavy smoking, it was recommended that he undergo a suspension microlaryngoscopy and possible biopsy of any lesions that might be found. PAST MEDICAL HISTORY: Reveals he has no known allergies to medications. CURRENT MEDICATIONS: 1. Plavix. 2. Atorvastatin. 3. Amlodipine. REVIEW OF SYSTEMS: CARDIOVASCULAR SYSTEM: Positive for hypertension and ASHD. METABOLIC/ENDOCRINE: Positive for hypercholesterolemia. Remainder of the review of systems is unremarkable. PREVIOUS SURGERIES: Include surgery of the left ear. PHYSICAL EXAMINATION: GENERAL: This patient is a 49-year-old male, who is alert and cooperative. HEENT: The patient is normocephalic. Tympanic membranes are normal. Middle ear spaces are free of any fluid or infection. Pupils are equal, round, and reactive to light and accommodation. Extraocular movements within normal limits. Intranasal examination reveals moderate septal deviation with compensatory hypertrophy of inferior turbinates. Examination of the oropharynx including indirect laryngoscopy using a headlight mirror revealed a suspicious fullness of the left true vocal cord. Remainder of the head and neck exam is unremarkable. CHEST/CARDIOVASCULAR: Both lung matos are clear to percussion and auscultation. The patient is in regular sinus rhythm. S1 and S2 present without any murmurs, S3s or S4s. Peripheral pulses are bilaterally symmetrical. ABDOMEN: There is no evidence any masses, megaly, or tenderness. The abdomen is soft. SKIN: Unremarkable. MUSCULOSKELETAL: Unremarkable. NEUROLOGICAL: Unremarkable. RECTAL: Deferred at this time because the patient has this done on a regular basis at his family physician's office. The remainder of physical exam is unremarkable. ASSESSMENT: Left true vocal cord/hypopharyngeal mass. PLAN: The patient is scheduled to undergo a suspension microlaryngoscopy with biopsy of any possible lesion found in the hypopharynx. This will be under general anesthesia. Attention, RNs in the pre-surgical area. I have ordered for this patient to receive 1000 mg of Ofirmev IV to be given once an intravenous line has been established. I have also ordered for this patient to receive 2 g of Ancef once the IV has been established. If the Pharmacy Department sends a different pre-surgical prophylactic antibiotic other than Ancef to the pre-surgical area, please cancel that order and return the medication to the Pharmacy Department. Also, please make sure that the patient's account is credited appropriately. I have discussed the risks, benefits and alternative therapies for the above-mentioned procedure and for both sedation/analgesia as well as necessary blood product administration, if indicated, as they pertain to this patient. The patient has indicated his understanding and acceptance of the risks and procedures discussed. MMODL / IJN: [id number] /
[~2024-03-09 09:12] MED LIST: HYDROmorphone 0.5 MG/0.5 ML SYRINGE IVP PRN; Pre Op ABX Message 1 EACH MISC MISCELLANE ONE
[2024-03-09] MEDS: LACTATED RINGERS 1,000 ML IV SCH (09:47)
[2024-03-09] MEDS: ACETAMINOPHEN IV (For NPO) 1,000 MG in EMPTY BAG 1 BAG IVPB ONE (09:48)
[2024-03-09] MEDS: SCOPOLAMINE 1 MG/72 HR PATCH TRANSDERM ONE (09:57)
[2024-03-09] MEDS: ONDANSETRON 4 MG/2 ML VIAL IVP ONE (09:57)
[2024-03-09] MEDS: DEXAMETHASONE SOD PHOSPHATE 4 MG/ML 1 ML VIAL IV ONE (09:57)
[2024-03-09] MEDS ORDERED: fentaNYL (PF) 50 MCG/ML 2 ML AMP ONE (11:13)
[2024-03-09] MEDS ORDERED: MIDAZOLAM 2 MG/2 ML VIAL ONE (11:13)
[2024-03-09] MEDS ORDERED: PHENYLEPHRINE-0.9% NACL SYG 1,000 MCG/10 ML SYRINGE ONE (11:13)
[2024-03-09] MEDS ORDERED: PROPOFOL 10 MG/ML 20 ML VIAL IV ONE (11:13)
[2024-03-09] MEDS ORDERED: SUCCINYLCHOLINE CHLORIDE 200 MG/10 ML VIAL IV ONE (11:13)
[2024-03-09] MEDS ORDERED: DEXAMETHASONE SOD PHOSPHATE 4 MG/ML 1 ML VIAL ONE (11:13)
[2024-03-09] MEDS ORDERED: LIDOCAINE 1% INJ 10MG/ML (20 ML MDV) ONE (11:13)
[2024-03-09] MEDS: LACTATED RINGERS 1,000 ML IV ONE (11:59)
[2024-03-09 12:56] VITALS: RESP 16; TEMP 97.5
[2024-03-09 15:08] VITALS: BP 154/93; PULSE 66
--- NOTE | 2024-03-12 19:00 | OP ---
OPERATIVE REPORT DATE OF SERVICE : 03/09/2024 PREOPERATIVE DIAGNOSIS: Hypopharyngeal mass. POSTOPERATIVE DIAGNOSIS: No hypopharyngeal mass noted. ANESTHESIA: General. PROCEDURE PERFORMED: Suspension microlaryngoscopy. COMPLICATIONS: None. ESTIMATED BLOOD LOSS: Zero. DESCRIPTION OF PROCEDURE: The patient was placed on the operating table in supine position. After uneventful induction and endotracheal intubation, satisfactory general anesthesia was obtained. Next, the patient was positioned and draped in the usual and customary fashion. Following this, the laryngoscope was introduced into the patient's oropharynx, and the entire hypopharynx including the right and left piriform sinuses, base of tongue, vallecula, and tip of the epiglottis were inspected and found to be free of any suspicious lesions. It was to be noted that there was some very, very slight asymmetry of the hypopharynx with respect to the left compared to the right side. The patient in the past had a stroke on his left side. The tip of the laryngoscope was subsequently introduced into the laryngeal introitus, the Lewy apparatus was attached to the handle of the laryngoscope, and the laryngoscope was suspended on the patient's chest. Next, using the Zeiss operating microscope and under magnified visualization, one could see both true vocal cords and the entire larynx. There was a slight amount of asymmetry with respect to the left true vocal cord, compared to the right. However, this was not technical account representative of either paresis or paralysis. No suspicious lesions were noted in the supraglottic or the subglottic area. Both true vocal cords appeared to be normal. The false vocal cords and ventricles were all within normal limits. The patient was given 10 mg of Decadron intraoperatively to reduce any postoperative laryngeal edema. At this point, the procedure was terminated. The patient tolerated the procedure well and was returned to the recovery room in satisfactory condition. MMODL / IJN: [id number] /
== END 2024-03-09 13:50 | disposition home or self-care (01) ==
LOC: OR 09:12
PROVIDERS: ATTEND Otolaryngology
DX: C13.9 Malignant neoplasm of hypopharynx, unspecified (principal); I10 Essential (primary) hypertension; G47.33 Obstructive sleep apnea (adult) (pediatric); Z86.73 Personal history of transient ischemic attack (TIA), and cerebral infarction without residual deficits; Z79.899 Other long term (current) drug therapy; Z90.49 Acquired absence of other specified parts of digestive tract; Z98.890 Other specified postprocedural states
CPT/HCPCS: 31525; J2250; J0330; J1100; J0690; J2405; J2001; J3010; J0131; J2704; J2371

== ENCOUNTER 2024-08-11 10:39 | Inpatient (IN) | payer BC ==
--- NOTE | 2024-08-11 10:55 | ED ---
General Adult HPI - General Chief complaint: Neuro Symptoms/Deficit Stated complaint: Stroke Time Seen by Provider: 08/11/24 10:45 Source: patient, RN notes reviewed, old records reviewed Mode of arrival: wheelchair Limitations: no limitations - History of Present Illness Initial comments: This is a 49-year-old male who presents to the emergency department stating he had a stroke about 2 and half years ago with very little residual. Patient states last night he started having problems walking a little attacks he stated having the symptoms about 9 PM. Patient states this morning he woke up and his speech was slurred his right arm was much weaker and his left leg was much weaker. Patient denies any headache patient denies any chest pain palpitations difficulty breathing shortness of breath. Patient states he is already on Plavix. Patient denies any recent fever chills or cough. Patient was initially taken to a [place] [facility] and they sent the patient here. We did not receive any prior phone call from the hospital. They did not come with any paperwork and in fact the family stated they did not even get any discharge paperwork. P atient did not bring any disc that would include the CT scans. - Related Data Home Medications Medication Instructions Recorded Confirmed Atorvastatin [Lipitor] 80 mg PO HS 04/19/22 03/06/24 amLODIPine BESYLATE/BENAZEPRIL 1 cap PO DAILY 04/19/22 03/06/24 [Lotrel 10-20 mg Capsule] Previous Rx's Medication Instructions Recorded Clopidogrel [Plavix] 75 mg PO DAILY 30 Days #30 tab 04/21/22 Acetaminophen-Codeine 300-30mg 1 tab PO Q4H PRN 3 Days #18 tablet 03/08/24 [Tylenol w/codeine #3] Acetaminophen-Codeine 300-30mg 1 tab PO Q4H PRN 3 Days #18 tablet 03/09/24 [Tylenol w/codeine #3] Allergies Allergy/AdvReac Type Severity Reaction Status Date / Time No Known Allergies Allergy Verified 03/06/24 11:00 Review of Systems ROS Statement: Those systems with pertinent positive or pertinent negative responses have been documented in the HPI. ROS Other: All systems not noted in ROS Statement are negative. 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 History of Any Multi-Drug Resistant Organisms: None Reported Past Surgical History: Appendectomy Additional Past Surgical History / Comment(s): ear canal surgery, Past Anesthesia/Blood Transfusion Reactions: No Reported Reaction Past Psychological History: No Psychological Hx Reported Smoking Status: Former smoker - Past Family History Brother(s) Family Medical History: Cancer Additional Family Medical History / Comment(s): lung General Exam - General Exam Comments Initial Comments: GENERAL: Patient is well-developed and well-nourished. Patient is nontoxic and well- hydrated and is in mild distress. ENT: Neck is soft and supple. No significant lymphadenopathy is noted. Oropharynx is clear. Moist mucous membranes. Neck has full range of motion without eliciting any pain. EYES: The sclera were anicteric and conjunctiva were pink and moist. Extraocular movements were intact and pupils were equal round and reactive to light. Eyelids were unremarkable. PULMONARY: Unlabored respirations. Good breath sounds bilaterally. No audible rales rhonchi or wheezing was noted. CARDIOVASCULAR: There is a regular rate and rhythm without any murmurs gallops or rubs. ABDOMEN: Soft and nontender with normal bowel sounds. SKIN: Skin is clear with no lesions or rashes and otherwise unremarkable. NEUROLOGIC: Patient is alert and oriented x3. Patient has slurred speech and slight facial droop on the left. Patient has significant left arm weakness left leg weakness pronator drift on the left and unable to perform cerebellar testing on the left. MUSCULOSKELETAL: Patient is unable to fully move the right arm and leg. LYMPHATICS: No significant lymphadenopathy is noted PSYCHIATRIC: Normal psychiatric evaluation. Limitations: no limitations Course Vital Signs 08/11/24 08/11/24 08/11/24 10:40 11:05 11:20 Temperature 98 F Pulse Rate 74 82 80 Respiratory 16 17 17 Rate Blood Pressure 167/112 155/105 O2 Sat by Pulse 96 98 98 Oximetry Medical Decision Making - Medical Decision Making EKG is interpreted by myself. EKG shows a sinus rhythm at 73 bpm. SD interval was 197 QRS is 88 QT interval 390 QTc is 416. Patient's EKG shows no ST segment elevation. Was pt. sent in by a medical professional or institution (, PA, INSTALLATION TECHNICIAN, urgent care, hospital, or fdc...) When possible be specific @ -No Did you speak to anyone other than the patient for history (EMS, parent, family, police, friend...)? What history was obtained from this source @ -No Did you review nursing and triage notes (agree or disagree)? Why? @ -I reviewed and agree with nursing and triage notes Were old charts reviewed (outside hosp., previous admission, EMS record, old EKG, old radiological studies, urgent care reports/EKG's, fdc records)? Report findings @ -When they can need hospital eventually sent to us the patient's chart and CAT scan result I did review it however the patient already had a CAT scan at our facility at that point in time. Differential Diagnosis? @ -Differential CVA Ischemic stroke, hemorrhagic stroke, brain tumor, atypical migraine, Wernicke's encephalopathy, seizure, multiple sclerosis, meningitis, encephalitis, hypoglycemia, Guillain-Santana, electrolytes disturbance, myasthenia gravis.... This is not meant to be an all-inclusive list EKG interpreted by me (3pts min.). @ -As above X-rays interpreted by me (1pt min.). @ -Chest x-ray shows no acute abnormality CT interpreted by me (1pt min.). @ -CT of the head shows no acute abnormality. CTA of the head and neck shows no acute abnormality there is some chronic changes but Dr. Mayer said there will be nothing we can do as far as intervention with those areas U/S interpreted by me (1pt. min.). @ -None What testing was considered but not performed or refused? (CT, X-rays, U/S, labs)? Why? @ -None What meds were considered but not given or refused? Why? @ -None Did you discuss the management of the patient with other professionals (professionals i.e. DrValentín, PA, INSTALLATION TECHNICIAN, lab, RT, psych nurse, social media coordinator, truck driver rubbish collector, teacher, biosecurity officer, caser in)? Give summary @ -I spoke with Dr. Mayer twice about this patient's condition. I also spoke with Dr. Moyer he agreed to admit the patient I admitted the patient wrote admitting orders Was smoking cessation discussed for >3mins.? @ -No Was critical care preformed (if so, how long)? @ -35 minutes Were there social determinants of health that impacted care today? How? (Homelessness, low income, unemployed, alcoholism, drug addiction, transportation, low edu. Level, literacy, decrease access to med. care, long-term, rehab)? @ -No Was there de-escalation of care discussed even if they declined (Discuss DNR or withdrawal of care, Hospice)? DNR status @ -No What co-morbidities impacted this encounter? (DM, HTN, Smoking, COPD, CAD, Cancer, CVA, ARF, Chemo, Hep., AIDS, mental health diagnosis, sleep apnea, morbid obesity)? @ -None Was patient admitted / discharged? Hospital course, mention meds given and route, prescriptions, significant lab abnormalities, going to OR and other pertinent info. @ -Patient continues to have deficits on the left side with some left facial droop and patient will be admitted to Dr. Moyer with a consult to neurology. On patient's arrival this was called a code stroke overhead Undiagnosed new problem with uncertain prognosis? @ -No Drug Therapy requiring intensive monitoring for toxicity (Heparin, Nitro, Insulin, Cardizem)? @ -No Were any procedures done? @ -No Diagnosis/symptom? @ -CV Acute, or Chronic, or Acute on Chronic? @ -Acute Uncomplicated (without systemic symptoms) or Complicated (systemic symptoms)? @ -Complicated Side effects of treatment? @ -None Exacerbation, Progression, or Severe Exacerbation] @ -No Poses a threat to life or bodily function? @ -Yes this can lead to further stroke and Critical Care Time Critical Care Time: Yes Total Critical Care Time: 35 Disposition Clinical Impression: Cerebrovascular accident (CVA) Disposition: ADMITTED IP TO THIS HOSP Referrals: Kilo Moyer MD [Primary Care Provider] - 1-2 days Time of Disposition: 11:33
[2024-08-11 11:31] LABS: Basophils % (A) 0 %; Eosinophils # (A) 0.1 k/uL (0-0.7); Eosinophils % (A) 1 %; HCT 46.3 % (39.0-53.0); HGB 16.2 gm/dL (13.0-17.5); Lymphocytes # (A) 2.3 k/uL (1.0-4.8); Lymphocytes % (A) 20 %; MCH 32.8 pg (25.0-35.0); MCHC 34.9 g/dL (31.0-37.0); Mean Platelet Volume 6.8; Monocytes # (A) 0.6 k/uL (0-1.0); Monocytes % (A) 5 %; Neutrophils # (A) 8.2 k/uL (1.3-7.7); Neutrophils % (A) 72 %; Platelet Count 291 k/uL (150-450); RBC 4.92 m/uL (4.30-5.90); RDW 12.5 % (11.5-15.5); WBC 11.3 k/uL (3.8-10.6)
[2024-08-11 11:38] LABS: INR 0.9 (<1.2); Prothrombin Time 9.9 sec (10.0-12.5)
--- NOTE | 2024-08-11 11:47 | CT ---
EXAMINATION TYPE: CT brain wo con DATE OF EXAM: 08/11/2024 COMPARISON: 04/19/2022 HISTORY: Neuro deficit, acute, stroke suspected CT DLP: 1193.6 mGycm. Automated Exposure Control for Dose Reduction was Utilized. TECHNIQUE: CT scan of the head is performed without contrast. FINDINGS: The ventricles, basal cisterns and sulci over the convexities are within normal limits and there is n o mass effect or shift of midline structures. There is a remote infarct involving the left parietal cortex and subcortical white matter. There are remote lacunar infarcts in the region of the left insular cortex. There is no acute intra or extra-axial hemorrhage. The posterior fossa including the brainstem, fourth ventricle and cerebellopontine angles appear asad sly normal. Intraorbital contents appear normal symmetric. Visualized paranasal sinuses and mastoid air cells are well aerated although the frontal sinuses are hypoplastic. IMPRESSION: 1. No acute bleed or mass effect. 2. Multiple remote infarcts in the left cerebral hemisphere as described above [facility], Workstation: [email or web address] 08/11/2024 11:45 AM
[2024-08-11 11:50] LABS: ALT 64 U/L (4-49); African American GFR (CKD) >90 (>60 ml/min/1.73 sqM); Albumin 4.9 g/dL (3.5-5.0); Anion Gap 13 mmol/L; Blood Urea Nitrogen 16 mg/dL (9-20); Calcium 9.9 mg/dL (8.4-10.2); Carbon Dioxide 19 mmol/L (22-30); Chloride 107 mmol/L (98-107); Creatine Kinase 145 U/L (55-170); Glucose 114 mg/dL (74-99); Non-African American GFR(CKD) >90 (>60 ml/min/1.73 sqM); Sodium 139 mmol/L (137-145); Total Bilirubin 1.3 mg/dL (0.2-1.3); Total Protein 7.9 g/dL (6.3-8.2)
[2024-08-11 11:56] LABS: AST 46 U/L (17-59); Alkaline Phosphatase 120 U/L (38-126); Potassium 4.6 mmol/L (3.5-5.1)
--- NOTE | 2024-08-11 12:06 | CT ---
EXAMINATION TYPE: CT angio head neck DATE OF EXAM: 08/11/2024 HISTORY: Neuro deficit, suspected stroke COMPARISON: 04/19/2022 Technique: Multiple axial images are obtained from the thoracic inlet to the vertex of the calvarium following uneventful administration of nonionic IV contrast. The exam was performed according to [facility] CTA protocol.. FINDINGS: The brachiocephalic origins are widely patent and no significant stenosis. There is no significant stenosis of the common or internal carotid arteries within the neck. There is mild calcified plaque at the carotid bifurcations. There is stable occlusion of the distal left vert ebral artery. Intracranially, there is stable occlusion of the M1 segment of the left middle cerebral artery. There is filling of the distal branches of the left middle cerebral artery via collaterals. 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 IMPRESSION:. 1. No significant stenosis of the brachiocephalic origins are carotid bifurcations within the neck. 2. 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 NASCET criteria was used in interpretation of this exam? [facility], Workstation: [email or web address] 08/11/2024 12:03 PM
[2024-08-11] MEDS: ASPIRIN 325 MG TAB PO STA (12:17)
--- NOTE | 2024-08-11 12:18 | XR ---
EXAMINATION TYPE: XR chest 2V DATE OF EXAM: 08/11/2024 COMPARISON: 04/19/2022 HISTORY: Altered mental status TECHNIQUE: Frontal and lateral views of the chest are obtained. FINDINGS: There is no focal air space opacity, pleural effusion, or pneumothorax seen. The cardiac silhouette size is within normal limits. The osseous structures are intact. IMPRESSION: No acute cardiopulmonary process. [facility], , 08/11/2024 12:15 PM
[2024-08-11] MEDS ORDERED: ENALAPRILAT 1.25 MG/ML 1 ML VIAL IVP PRN (12:19)
[2024-08-11] MEDS ORDERED: hydrALAZINE HCL 25 MG TAB PO PRN (12:19)
[2024-08-11] MEDS: INSULIN ASPART (NovoLOG) 100 UNIT/ML VIAL SQ SCH (13:13)
[2024-08-11 16:51] LABS: Glucose,Whole Blood 100 mg/dL (70-110)
--- NOTE | 2024-08-11 17:05 | US ---
EXAMINATION TYPE: US carotid duplex BILAT DATE OF EXAM: 08/11/2024 COMPARISON: NONE CLINICAL INDICATION: Male, 49 years old with history of CVA; Hx Stroke; This time - slurred and not f eeling well. TECHNIQUE: Grayscale, color Doppler and spectral Doppler evaluation of the bilateral carotid systems and vertebral arteries.Indirect Doppler criteria was utilized. FINDINGS: EXAM MEASUREMENTS: RIGHT: Peak Systolic Velocity (PSV) cm/sec ----- Right CCA: 98 ----- Right ICA: 93 ----- Right ECA: 126 ICA/CCA ratio: 0.95 RIGHT: End Diastole cm/sec ----- Right CCA: 29 ----- Right ICA: 23 ----- Right ECA: 22 LEFT: Peak Systolic Velocity (PSV) cm/sec ----- Left CCA: 93 ----- Left ICA: 82 ----- Left ECA: 88 ICA/CCA ratio: 0.89 LEFT: End Diastole cm/sec ----- Left CCA: 32 ----- Left ICA: 20 ----- Left ECA: 12 VERTEBRALS (direction of flow): Right Vertebral: Antegrade Left Vertebral: Antegrade Rhythm: Normal QUARTER SEAMER NOTES: Plaque seen at bilateral CCA bulbs, no intimal thickening or elevated velocities s een. Enlarged lymph nodes bilateral lateral neck IMPRESSION: 1. Atheromatous plaquing without significant flow-limiting stenosis. Criteria for Assigning % of Stenosis / Diameter reduction (Estimation based on the indirect measurements of the internal carotid artery velocities (ICA PSV). 1. Normal (no stenosis)=ICA PSV < 125 cm/s: ratio < 2.0: ICA EDV<40 cm/s. 2. Less than 50% stenosis=ICA PSV < 125 cm/s: ratio < 2.0: ICA EDV<40 cm/s. 3. 50 to 69% stenosis=ICA PSV of 125 to 230 cm/s: ration 2.0 ? 4.0: ICA EDV 40-100 cm/s. 4. Greater than 70% stenosis to near occlusion= ICA PSV > 230 cm/s: ratio > 4.0: ICA EDV > 100 cm/s. 5. Near occlusion= ICA PSV velocities may be low or undetectable: variable ratio and ICA EDV. 6. Total occlusion=unable to detect flow. [facility], Workstation: [facility], 08/11/2024 5:03 PM
--- NOTE | 2024-08-11 17:10 | P.HPIM ---
History of Present Illness H&P Date: 08/11/24 HISTORY OF PRESENT ILLNESS: 49-year-old with active medical history of CVA/TIA, hypertension, hyperlipidemia, obstructive sleep apnea, BPH, skin cancer who has slight residua l of left-sided weakness from all the stroke happened 2 years ago Will patient was hospitalized in town back in April 19, 2022 and ended up seeing neurology and had quite good workup at the time including CT of the brain, CTA, echocardiogram, MRI of the brain conclusion that time was that he had severe symptom of vertigo and off-balance with diplopia and vertebrobasilar insufficiency left him with slight stroke with right-sided numbness with worsening hiccup at the time found to have 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 He recovered at time and continue on Plavix along with aspirin better control of blood pressure along with quit smoking completely and change his sedentary lifestyle blood sugar was mild elevated was monitored as well all along. Study from our charting does not look like patient had transesophageal at the time but had transthoracic which failed to show any atrial septal defect or ventricular sep [place] defect with normal valvular heart disease and pericardium. Did not pursue further testing such as longer-term heart monitor or transesophageal echocardiogram Patient was fishing in [place] about 3 [place] when developed around 11:00 at night severe numbness and significant weakness of the left side of his body was delay going to the emergency room till around 2:00 or was seen in the emergency department in [place] CAT scan of the brain was performed and patient was told that he is having stroke his family decide to drive him across the bridge back to [facility] straight to the emergency department at [facility] where was seen and evaluated CAT scan of the brain performed shows no acute bleed or mass effect multiple remote infarcts in the left cerebral hemisphere found affecting the left parietal cortex and subcortical white matter also there is remote lacunar infarct in the region of the left insular cortex. The posterior fossa including the brainstem fourth ventricle and cerebral pontine angle appeared to be grossly normal. Patient also had CT angiogram which shows occluded V4 segment of the left vertebral artery mainstem of the left MCA demonstrate multiple collateral circulation and inferior aspect of the basilar artery with markedly reduced caliber of the V4 segment of the right vertebral artery and this is stable compared to February 2022 when patient had his last stroke. Also recommending to have MRI of the brain and carotid ultrasound as well. Lab value this time again shows normal CBC, PT/INR, chemistry with blood sugar mildly elevated at 114. Upon presentation patient's vitals were pretty stable with pulse 75 respiration 17 blood pressure 134/99 was diastolic slightly with elevated with blood pressure mean was 110 pulse ox was 98 percentile. After being in the emergency department starting patient on hydralazine and Vasotec IV improve his blood pressure. Patient be hospitalized again for stroke this time he has significant weakness in the left upper extremity also has significant drop in foot of the left side compared to the right side this is not new because his stroke last time was mostly on the right side. REVIEW OF SYSTEMS: CONSTITUTIONAL: Well-developed no acute respiratory distress. EYES: No icterus sclerae, no conjunctivitis. EARS, NOSE, MOUTH, THROAT, and FACE: No sore throat, lymphadenopathy, carotid bruits or deformity. RESPIRATORY: No SOB cough or wheezes. CARDIOVASCULAR: No CP, Palpitation, PND, Orthopnea, or angina. GASTROINTESTINAL: No Abd pain, Nausea or vomiting, no Diarrhea or constipation, No GI Bleed, no distention or masses. GENITOURINARY: Negative for Hematuria or UTI, no kidney stones. INTEGUMENT/BREAST: Negative for any muscular injury with mild osteoarthritis.. HEMATOLOGIC/LYMPHATIC: Negative for bleed or purpura. MUSCULOSKELTAL: Generalized myalgia and arthralgia. NEURLOGICAL: CVA with left-sided weakness slightly droopy face to the left side as well with dropping foot in the left side compared to right side. BEHAVIORAL/PSYCH: Negative. ENDOCRINE: Negative. PHYSICAL EXAMINATION: General Appearance: Alert, cooperative, no distress, appears stated age. Slightly bit anxious. Neck HEENT: Supple, no lymphadenopathy, no thyroid enlargement, no carotid bruits. Lungs: Clear to auscultation without crackles or wheezes no rhonchi, no deformity. Chest Wall: Chest wall normal expansion with deep inspiration no tenderness and no deformity was found on exam, no costochondral pain or discomfort. Heart: Regular rate and rhythm, S1, S2 normal, no murmur, rub or gallop. Back: Symmetric, no curvature, ROM normal, no CVA tenderness. Abdomen: Soft, non-tender, bowel sounds active all four quadrants, no masses, no organomegaly. Extremities: Extremities normal, atraumatic, no cyanosis or edema. Pulses: 2+ and symmetric. Skin: Skin color, texture, tugor normal, no rashes or lesions. Neurologic: Alert oriented x3 cranial nerves II through XII show slight defect in cranial nerve VII on the left side, significant weakness in the left side compared to the right side specially the left upper extremity with strength 2 out of 5 compared to 4 out of 5 in the left side with significant drop in foot in the left foot as well not able to do gait exam. ASSESSMENT AND PLAN: _Stroke: With weakness in the left side not clear what sort of abnormality patient had in his circulatory system MRI and MRI will be done consult neurology patient will require further workup at this time including transesophageal echocardiogram possibly loop recorder monitor to exclude any possibility of atrial fibrillation or any atrial or ventricular septal defect with any thrombus might be generated from the heart. Continue Plavix and aspirin neurology consultation might have further recommendation. Patient presentation to the emergency department in our hospital was several hours after the fact could not use any thrombolytic or any anticoagulation. _Slight deformity of the vertebral artery mostly on the left side that should affect patient right side this time his stroke is in the left side mostly causing more problem again medically etiology no A-fib was found continue workup try to find explanation for stroke patient will be watched on heart monitor try to control his blood pressure pulse rate and cholesterol as well. _Hypertension: Remain on amlodipine 10 mg a day will add Vasotec 2.5 mg every 6 hours for systolic above 150 also he is still on lisinopril 40 mg a day will add hydralazine 25 mg 4 times a day as needed for systolic above 140. _Hyperlipidemia remain on atorvastatin 80 mg a day continue vacation. _Hyperglycemia: Patient will start Accu-Chek sliding scales coverage will add SGLT2 product Tradjenta in the hospital and Jardiance as an outpatient. _Dysphagia: So far not clear whether patient is able to swallow or not has been having slight difficulty and has problem as well with expressive aphasia but that is mostly his phonics and his facial expression and muscle might be affecting the way how he vocalized causing more problem with dysphagia but we should find out if he has dysphagia speech therapy seen patient before feeding him. _BPH: Watch for any urinary retention. _Anticoagulation: Patient was on Plavix 75 mg along since his last stroke. _GI prophylaxis: Pantoprazole 40 mg abuse. _DVT prophylaxis: Knee-high CARINA hose and early mobilization. Discussion: Patient will require intense physical and Occupational Therapy, require better study neurology and cardiovascular again to see if there is any other possibility consistent with his [place] along with his vertebral and internal carotid might be causing part of the problem. Patient will have CTA and eventually loop recorder monitor to make sure he is not having A-fib and for remaining clot can explain the stroke. Admit patient to the inpatient service for more than 2 night stay. 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 History of Any Multi-Drug Resistant Organisms: None Reported Past Surgical History: Appendectomy Additional Past Surgical History / Comment(s): ear canal surgery, Past Anesthesia/Blood Transfusion Reactions: No Reported Reaction Past Psychological History: No Psychological Hx Reported Smoking Status: Former smoker - Past Family History Brother(s) Family Medical History: Cancer Additional Family Medical History / Comment(s): lung Medications and Allergies Home Medications Medication Instructions Recorded Confirmed Type Atorvastatin [Lipitor] 80 mg PO HS 04/19/22 08/11/24 History Clopidogrel [Plavix] 75 mg PO DAILY 30 Days #30 tab 04/21/22 08/11/24 Rx Psyllium Husk [Fiber Capsule] 0.8 gm PO BID 08/11/24 08/11/24 History amLODIPine BESYLATE/BENAZEPRIL 1 cap PO HS 08/11/24 08/11/24 History [Lotrel 10-40 mg Capsule] Allergies Allergy/AdvReac Type Severity Reaction Status Date / Time No Known Allergies Allergy Verified 08/11/24 15:09 Physical Exam Vitals: Vital Signs Temp Pulse Resp BP Pulse Ox 08/11/24 12:00 75 17 134/99 98 08/11/24 11:35 76 17 132/86 98 08/11/24 11:20 80 17 155/105 98 08/11/24 11:05 82 17 167/112 98 08/11/24 10:40 98 F 74 16 96 Intake and Output 08/10/24 08/11/24 08/11/24 22:59 06:59 14:59 Other: Weight 99.79 kg Results CBC & Chem 7: 10/12/24 10:50 08/11/24 10:50 Labs: Abnormal Lab Results - Last 24 Hours (Table) 08/11/24 08/11/24 08/11/24 Range/Units 10:50 10:50 10:50 WBC 11.3 H (3.8-10.6) k/uL Neutrophils # 8.2 H (1.3-7.7) k/uL PT 9.9 L (10.0-12.5) sec Carbon Dioxide 19 L (22-30) mmol/L Creatinine 0.65 L (0.66-1.25) mg/dL Glucose 114 H (74-99) mg/dL ALT 64 H (4-49) U/L
[2024-08-11 20:14] LABS: Glucose,Whole Blood 100 mg/dL (70-110)
[2024-08-11] MEDS: PSYLLIUM HUSK 100% 6 GM PACKET PO SCH (20:21)
[2024-08-11] MEDS: ATORVASTATIN 80 MG TAB PO SCH (20:22)
[2024-08-11] MEDS: amLODIPine 10 MG TAB PO SCH (20:22)
[2024-08-11] MEDS: lisinopriL 20 MG TAB PO SCH (20:22)
[2024-08-12 06:25] LABS: Glucose,Whole Blood 117 mg/dL (70-110)
[2024-08-12] MEDS: PANTOPRAZOLE 40 MG TABLET PO SCH (06:34)
[2024-08-12 07:27] LABS: HCT 43.4 % (39.0-53.0); HGB 14.4 gm/dL (13.0-17.5); MCH 31.8 pg (25.0-35.0); MCHC 33.1 g/dL (31.0-37.0); MCV 96.1 fL (80.0-100.0); Mean Platelet Volume 6.6; Platelet Count 256 k/uL (150-450); RBC 4.52 m/uL (4.30-5.90); RDW 12.1 % (11.5-15.5); WBC 5.4 k/uL (3.8-10.6)
[2024-08-12 07:41] LABS: ALT 65 U/L (4-49); AST 58 U/L (17-59); African American GFR (CKD) >90 (>60 ml/min/1.73 sqM); Albumin 4.1 g/dL (3.5-5.0); Alkaline Phosphatase 109 U/L (38-126); Anion Gap 7 mmol/L; Blood Urea Nitrogen 14 mg/dL (9-20); Calcium 9.2 mg/dL (8.4-10.2); Carbon Dioxide 25 mmol/L (22-30); Chloride 108 mmol/L (98-107); Glucose 106 mg/dL (74-99); Non-African American GFR(CKD) >90 (>60 ml/min/1.73 sqM); Potassium 4.3 mmol/L (3.5-5.1); Sodium 140 mmol/L (137-145); Total Bilirubin 1.1 mg/dL (0.2-1.3); Total Protein 6.7 g/dL (6.3-8.2)
[2024-08-12] MEDS: CLOPIDOGREL 75 MG TAB PO SCH (08:47)
[2024-08-12] MEDS: ASPIRIN 325 MG TAB PO SCH (08:47)
[2024-08-12] MEDS ORDERED: CLOPIDOGREL 75 MG TAB PO SCH (09:00)
--- NOTE | 2024-08-12 09:43 | CA ---
Transthoracic Echo Report Name: Iggy Pollard Age: 49 Gender: M : 1975 Exam Date: 08/11/2024 15:07 Exam Location: [facility] Ht (in): 71 Wt (lb): 220 Ordering Physician: Kilo Moyer MD Attending/Referring Phys: Keg Inspector Lilibeth Castro RDCS Procedure CPT: Indications: lvfunction Cardiac Hx: Technical Quality: Fair Contrast 1: Agitated Saline Total Dose (mL): 2 Contrast 2: Total Dose (mL): MEASUREMENTS (Male / Female) Normal Values 2D ECHO LV Diastolic Diameter PLAX 5.2 cm 4.2 - 5.9 / 3.9 - 5.3 cm LV Systolic Diameter PLAX 3.4 cm IVS Diastolic Thickness 0.9 cm 0.6 - 1.0 / 0.6 - 0.9 cm LVPW Diastolic Thickness 1.4 cm 0.6 - 1.0 / 0.6 - 0.9 cm LV Relative Wall Thickness 0.4 LVOT Diameter 2.4 cm LV Diastolic Volume MOD BP 148.2 cm??? 67 - 155 / 56 - 104 cm??? LV Systolic Volume MOD BP 59.8 cm??? 22 - 58 / 19 - 49 cm??? LV Ejection Fraction MOD BP 59.6 % >= 55 % LV Cardiac Index MOD BP 2499.5 cm???/min???m??? LV Diastolic Volume MOD 4C 151.9 cm??? LV Systolic Volume MOD 4C 65.2 cm??? LV Ejection Fraction MOD 4C 57.1 % LV Cardiac Index MOD 4C 2453.9 cm???/min???m??? LV Diastolic Length 4C 9.7 cm LV Systolic Length 4C 8.2 cm LV Diastolic Volume MOD 2C 144.6 cm??? LV Systolic Volume MOD 2C 54.2 cm??? LV Ejection Fraction MOD 2C 62.5 % LV Cardiac Index MOD 2C 2558.8 cm???/min???m??? LV Diastolic Length 2C 9.8 cm LV Systolic Length 2C 8.1 cm LA Volume 61.6 cm??? 18 - 58 / 22 - 52 cm??? LA Volume Index 27.2 cm???/m??? 16 - 28 cm???/m??? DOPPLER AV Peak Velocity 139.9 cm/s AV Peak Gradient 7.8 mmHg AV Mean Velocity 89.4 cm/s AV Mean Gradient 3.7 mmHg AV Velocity Time Integral 26.9 cm LVOT Peak Velocity 102.9 cm/s LVOT Peak Gradient 4.2 mmHg LVOT Velocity Time Integral 22.5 cm LVOT Stroke Volume 104.0 cm??? LVOT Stroke Volume Index 47.4 ml/m??? LVOT Cardiac Index 2944.5 cm???/min???m??? AV Area Cont Eq vti 3.9 cm??? AV Area Cont Eq pk 3.4 cm??? MV Area PHT 3.7 cm??? Mitral E Point Velocity 59.1 cm/s Mitral A Point Velocity 72.0 cm/s Mitral E to A Ratio 0.8 MV Deceleration Time 207.3 ms PV Peak Velocity 98.6 cm/s PV Peak Gradient 3.9 mmHg FINDINGS Left Ventricle Left ventricular ejection fraction is estimated at 55-60 %. Mildly increased left ventricular systolic volume. Left ventricular wall thickness normal. No obvious regional wall motion abnormalities. Right Ventricle Normal right ventricular size and function. Unable to estimate the right ventricular systolic pressure. Right Atrium Normal right atrial size. Negative agitated saline bubble study for right to left shunt. Left Atrium Mildly increased left atrial volume. Mildly increased left atrial area. Mitral Valve Structurally normal mitral valve. No mitral stenosis, regurgitation or prolapse. Aortic Valve Trileaflet aortic valve. Aortic valve sclerosis. No aortic valve stenosis or regurgitation. Tricuspid Valve Structurally normal tricuspid valve. No tricuspid stenosis. No tricuspid regurgitation. Pulmonic Valve Structurally normal pulmonic valve. No pulmonic stenosis. Trace pulmonic regurgitation. Pericardium No pericardial effusion. Aorta Aortic annulus normal. Ascending aorta not well visualized. CONCLUSIONS Left ventricular ejection fraction is estimated at 55-60 %. No obvious regional wall motion abnormalities. Mild LA dilatation No significant valvular dysfunction Normal RV size and systolic function Previewed by: Dr Carson Block (Electronically Signed) Final Date: 12 August 2024 09:42
[2024-08-12 11:46] LABS: Glucose,Whole Blood 116 mg/dL (70-110)
[2024-08-12] MEDS: DULoxetine HCL 30 MG CAPSULE.DR PO SCH (11:57)
[2024-08-12 12:41] LABS: Chol/HDL Ratio 3.18 Ratio; LDL Cholesterol,Calculated 27.3 mg/dL (0.0-131.0)
--- NOTE | 2024-08-12 13:25 | P.CNNES ---
History of Present Illness Consult date: 08/12/24 Requesting physician: Art Otto Reason for Consult: cva History of Present Illness: This is a 49-year-old gentleman with history of stroke with residual right-sided feeling hot sensation and left-sided numbness, TIA, clot in the posterior circulation in the past and while at [facility], was notified that no surgical intervention since the risk outweigh the benefit, former tobacco use, family history of stroke who presented emergency department because of left-sided weakness slurred speech. Patient's mother and are at bedside who provides some of the history. It seems that patient was at [place] this past Tuesday and at nighttime around 10 PM he had sudden onset left-sided weakness with slurred speech around 10 PM and he was taken to the hospital in [place] and they did CT CT angiography and the patient recalls being told the the CT of the head is unremarkable for any acute process. So he decided that he wants to come to the [facility] for further evaluation. So he had his family member driving him to [facility] yesterday and he was discharged from the hospital from [place]. The patient is on Plavix 75 mg daily. Patient is also on Lipitor 80 mg nightly. Patient had multiple neurological evaluation by different neurologist according to the patient and unknown cause of his clot/stroke. He does have significant family history of strokes from his father grandfather side had strokes at early age. Patient states that he had extensive lab workup for strokes in the past and unknown genetic factor that he recalls. Seems the patient had a 30-day event monitor and no A-fib/flutter according to primary attending. I personally seen the patient last on 04/21/2022 in our hospital and he had a TIA and symptoms was vertigo, off balance diplopia Likely from vertebral basilar insufficiency his NIH was a 1 at that time which was numbness which was old. I stated in the prior note he had numbness over the right side hiccups left-sided septal weakness. Refer to my notes for further details Some of the workup during this hospital visit: Lipid panel: triglyceride 227, cholesterol 106, LDL is 27 and HDL is 33. CT of the head is reported as no acute bleed or mass effect. Multiple remote infarct in the left cerebral hemisphere as described. I personally reviewed the CT and there is no acute or subacute ischemic stroke noted. CT angiography of the head and neck is reported as no significant stenosis of the brachiocephalic origin or carotid bifurcation within the neck. 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 Carotid duplex is reported as abdomen is plaquing without significant flow- limiting stenosis. ED activated code stroke and they spoke with Dr. Moya, stroke interventionalist and it is reported no intervention but medical management. No IV thrombolytic in our facility since outside the window and risk outweigh benefit. Review of Systems The positive and negative as per HPI. 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 History of Any Multi-Drug Resistant Organisms: None Reported Past Surgical History: Appendectomy Additional Past Surgical History / Comment(s): ear canal surgery, Past Anesthesia/Blood Transfusion Reactions: No Reported Reaction Past Psychological History: No Psychological Hx Reported Smoking Status: Former smoker - Past Family History Brother(s) Family Medical History: Cancer Additional Family Medical History / Comment(s): lung Medications and Allergies Home Medications Medication Instructions Recorded Confirmed Type Atorvastatin [Lipitor] 80 mg PO HS 04/19/22 08/11/24 History Clopidogrel [Plavix] 75 mg PO DAILY 30 Days #30 tab 04/21/22 08/11/24 Rx Psyllium Husk [Fiber Capsule] 0.8 gm PO BID 08/11/24 08/11/24 History amLODIPine BESYLATE/BENAZEPRIL 1 cap PO HS 08/11/24 08/11/24 History [Lotrel 10-40 mg Capsule] Allergies Allergy/AdvReac Type Severity Reaction Status Date / Time No Known Allergies Allergy Verified 08/11/24 15:09 Physical Examination - Vital Signs Vital Signs: Vital Signs Temp Pulse Resp BP Pulse Ox 08/12/24 12:00 98 F 68 16 116/69 95 08/12/24 08:45 98 F 76 16 102/61 97 08/12/24 07:56 97 08/12/24 04:00 97.7 F 67 18 114/60 98 08/12/24 01:31 18 08/12/24 00:00 63 18 122/83 95 08/11/24 20:00 97.7 F 68 18 117/73 95 08/11/24 16:33 97.6 F 68 18 148/80 96 08/11/24 13:05 97.5 F L 67 18 137/70 98 Intake and Output 08/11/24 08/12/24 08/12/24 22:59 06:59 14:59 Intake Total 500 118 Output Total 200 Balance 500 -200 118 Intake: Oral 500 118 Output: Urine 200 Other: Weight 99.5 kg GENERAL: The patient is lying in bed and is not in acute distress. NEUROLOGICAL: Higher mental function: The patient is awake, alert, oriented to self, place and time. Patient is following commands. No aphasia and no neglect. Cranial nerves: The pupils are round, equal and reactive to light and accommodation. Visual matos are full to confrontation throughout. Extraocular movement is mild rotatory nystagmus looking to right and left at far ends. Facial sensation is normal to touch throughout. Has mild left lower facial weakness. Has positive mild to moderate dystarthria. Hearing is normal bilaterally to hand rub. Tongue is midline and moved [id number] without any difficulty. Motor: The strength is 5 over 5 throughout right. Left upper extremity pro ximally is 3-4 but distally is 0/5. Left lower is 4+ to 5-. Decrease tone on the left side. Normal on the right. Cerebellum: Normal finger to nose on the right. Sensation: Decrease sensation to touch on the left side. Reflexes (right/left): Brisk on the left. Normal on the right. Plantars are mute bilaterally. Results - Laboratory Findings CBC and BMP: 08/12/24 06:44 08/12/24 06:44 Abnormal Lab Findings: Abnormal Labs 08/11/24 08/11/24 08/11/24 10:50 10:50 10:50 WBC 11.3 H Neutrophils # 8.2 H PT 9.9 L Chloride Carbon Dioxide 19 L Creatinine 0.65 L Glucose 114 H POC Glucose (mg/dL) ALT 64 H Triglycerides VLDL Cholesterol, Calc HDL Cholesterol 08/12/24 08/12/24 08/12/24 06:23 06:44 11:44 WBC Neutrophils # PT Chloride 108 H Carbon Dioxide Creatinine Glucose 106 H POC Glucose (mg/dL) 117 H 116 H ALT 65 H Triglycerides 227.00 H VLDL Cholesterol, Calc 45.40 H HDL Cholesterol 33.30 L Assessment and Plan Assessment: This is a 49-year-old gentleman with history of stroke in 2021 with residual left-sided numbness with surgery abnormal sensation feeling hot and was noted to have clot in the posterior circulation region and was told no intervention at [facility] since the risk outweigh the benefit, TIA in March 2022 with vertigo off balance diplopia, former tobacco use presented em ergency department because this past Tuesday while in [place] at nighttime around 10 PM had an episode of sudden onset left-sided weakness, left facial droop dysarthria. He was taken to hospital in [place] and no intervention. Patient elected to be discharged and he was driven by family members to our facility for further evaluation. Acute ischemic stroke patient has left hemiparesis left upper worse than the lower and has left facial droop positive dysarthria minimal nystagmus looking to the right and left. 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 ED spoke with neurology interventionalists Dr. Moya stated no intervention and recommended medical management History of old stroke with residual numbness over the left side and feels hot over the right side and on my prior note I stated the patient has subtotal left- sided weakness. Seems that the patient has an old posterior circulation clot and was told no surgical invention since the risk outweigh the benefit in 2021 at [facility] History of TIA in our facility on 03/2022 and the patient had vertigo off balance diplopia. At that time his NIH was a 1 and it was due to the numbness that is old In the past he had occluded V4 segment in the left vertebral artery basilar artery with marked reduced Ex-Tobacco use Family history of young stroke his father in his 40s. Plan: I spoke with the primary attending and we will stop Plavix his home medication and will start him on Brilinta 90 mg 1 tablet twice daily and I will load him with one time 180mg daily. Also started the patient on aspirin 81 mg daily during this hospital visit. Prior to this he was only on Plavix. He was given aspirin 325 once in the ED. He is continued on his home Lipitor 80 mg nightly. I ordered MRI of the brain stat. Please avoid hypotensive episode and recommend permissive permissive hypertensive episode for now. I stopped the hydralazine as needed dose ordered by primary attending. Continue neurochecks Cardiac monitoring If patient has any worsening condition recommend the patient to be transferred immediately to ICU and I recommend the stroke interventions to be contacted immediately. PT OT and MIRROR FABRICATION SUPERVISOR are consulted Primary team has consulted neurologist for BESSY and a loop recorder. The patient was evaluated by different neurologist as outpatient and stated he had hypercoagulable workup and the workup was negative. Recommend patient to follow-up with a manager quality improvement for the young stroke workup reevaluation especially with young family history of stroke from the father side. For DVT prophylaxis I started the patient on subcu heparin. The plan discussed with the patient, his and his mother was at bedside as well as the primary attending Thank you for the consultation. Dr. Milton will resume neurology service tomorrow A.M. Time with Patient: Greater than 30
[2024-08-12] MEDS ORDERED: BENZOCAINE SPRAY 1 CAN TOPICAL PRN (13:58)
[2024-08-12] MEDS ORDERED: MIDAZOLAM 2 MG/2 ML VIAL IV PRN (13:58)
[2024-08-12] MEDS ORDERED: fentaNYL (PF) 50 MCG/ML 5 ML AMP IVP PRN (13:58)
--- NOTE | 2024-08-12 14:08 | P.CRDCN ---
History of Present Illness Consult date: 08/12/24 History of present illness: HISTORY OF PRESENTING ILLNESS Patient is a 49-year-old with PMH of CVA with residual right-sided feeling of heart sensation and left-sided numbness, TIA in 2021. At that time he was a smoker and he has not smoked since. He does have family history of stroke. During that hospitalization he had CT angiogram head and neck and MRI brain whic h showed some concerns with circulation abnormalities in the left MCA, left posterior cerebral artery and left vertebral artery. Apparently he was worked up at [facility] as per the neurologist's note. It is unclear if patient had a BESSY in the past. Patient does report that he has had a 30-day event monitor with no reported atrial fibrillation or flutter according to the patient and the neurologist. This time he presents the hospital with a new symptoms of left-sided upper and lower extremity weakness. Patient reports that he was in [place] on a fishing trip and at nighttime around 10 PM he suddenly started feeling left-sided upper and lower extremity weakness along with slurred speech. He initially went to the hospital in [place] where he had a CT head done. Thereafter he presented to the hospital here at [facility]. Patient reports that he is on Plavix and Lipitor. At the time of evaluation, patient denies having any active chest pain chest pressure shortness of breath. He denies any palpitation symptoms lightheadedness or dizziness. He reports that he has not had any syncopal episodes. His ECG on admission shows normal sinus rhythm with no significant ST-T wave changes concerning of acute ischemia. The also does not show any arrhythmias. His telemetry does not show any arrhythmias so far in last [address] angiogram head and neck shows chronic occlusion of left M1 segment of MCA, basilar artery and distal left vertebral artery Cholesterol 106, triglyceride 227, LDL 27, HDL 33 REVIEW OF SYSTEMS 14 point review of system is negative except what is mentioned above in HPI. PHYSICAL EXAMINATION Vital signs reviewed. Head: Normocephalic. Eyes: Sclerae nonicteric. Neck: Brisk carotid upstroke, no jugular venous distention. Lungs: Clear to auscultation. Heart: Regular rate and rhythm, S1-S2, no S3, no murmur or rub. Abdomen: Soft nontender, positive bowel sounds. Extremities: No edema, intact distal pulses. Neuro: Alert, oritented, reduced strength in bilateral upper and lower extremity, slurred speech, detailed neuro exam was not performed. ASSESSMENT Recurrent CVA. Slurred speech, left hemiparesis Prior CVA/TIA in 2021 Chronic occlusion of left M1 MCA, basilar artery, distal left vertebral artery Echocardiogram during this hospital shows preserved LV size systolic function with no major valvular abnormality. PLAN He is on aspirin and Brilinta as per the neurology recommendations. He is on high intensity statin Because of the recurrent nature of his stroke, and young age, I would recommend performing a transesophageal echocardiogram to make sure there is no concerns of vegetation/thrombus, or significant ascending aorta plaques. I would recommend performing long-term rhythm monitoring to make sure that patient does not have any atrial fibrillation and if he would benefit from systemic anticoagulation. For this I had a long discussion with patient regarding repeating event monitors or performing loop recorder. At this time patient understands the procedure steps of loop recorder and complications associated with it like migration into the tissue. He would like to proceed with loop recorder placement for long-term rhythm monitoring. Carson Block MD, FACC, RPVI Thank you for allowing [facility] to participate in this patient's care. Feel free to reach out in case of any followup questions. 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 History of Any Multi-Drug Resistant Organisms: None Reported Past Surgical History: Appendectomy Additional Past Surgical History / Comment(s): ear canal surgery, Past Anesthesia/Blood Transfusion Reactions: No Reported Reaction Past Psychological History: No Psychological Hx Reported Smoking Status: Former smoker - Past Family History Brother(s) Family Medical History: Cancer Additional Family Medical History / Comment(s): lung Medications and Allergies Home Medications Medication Instructions Recorded Confirmed Type Atorvastatin [Lipitor] 80 mg PO HS 04/19/22 08/11/24 History Clopidogrel [Plavix] 75 mg PO DAILY 30 Days #30 tab 04/21/22 08/11/24 Rx Psyllium Husk [Fiber Capsule] 0.8 gm PO BID 08/11/24 08/11/24 History amLODIPine BESYLATE/BENAZEPRIL 1 cap PO HS 08/11/24 08/11/24 History [Lotrel 10-40 mg Capsule] Allergies Allergy/AdvReac Type Severity Reaction Status Date / Time No Known Allergies Allergy Verified 08/11/24 15:09 Physical Exam Vitals: Vital Signs Temp Pulse Resp BP Pulse Ox 08/12/24 12:00 98 F 68 16 116/69 95 08/12/24 08:45 98 F 76 16 102/61 97 08/12/24 07:56 97 08/12/24 04:00 97.7 F 67 18 114/60 98 08/12/24 01:31 18 08/12/24 00:00 63 18 122/83 95 08/11/24 20:00 97.7 F 68 18 117/73 95 08/11/24 16:33 97.6 F 68 18 148/80 96 Intake and Output 08/11/24 08/12/24 08/12/24 22:59 06:59 14:59 Intake Total 500 118 Output Total 200 Balance 500 -200 118 Intake: Oral 500 118 Output: Urine 200 Other: Weight 99.5 kg Results 08/12/24 06:44 08/12/24 06:44 Cardiac Enzymes 08/12/24 Range/Units 06:44 AST 58 (17-59) U/L Lipids 08/12/24 Range/Units 06:44 Triglycerides 227.00 H (0.00-149.00) mg/dL Cholesterol 106.00 (0.00-200.00) mg/dL HDL Cholesterol 33.30 L (40.00-60.00) mg/dL Cholesterol/HDL Ratio 3.18 Ratio CBC 08/12/24 Range/Units 06:44 WBC 5.4 (3.8-10.6) k/uL RBC 4.52 (4.30-5.90) m/uL Hgb 14.4 (13.0-17.5) gm/dL Hct 43.4 (39.0-53.0) % Plt Count 256 (150-450) k/uL Comprehensive Metabolic Panel 08/12/24 Range/Units 06:44 Sodium 140 (137-145) mmol/L Potassium 4.3 (3.5-5.1) mmol/L Chloride 108 H (98-107) mmol/L Carbon Dioxide 25 (22-30) mmol/L BUN 14 (9-20) mg/dL Creatinine 0.71 (0.66-1.25) mg/dL Glucose 106 H (74-99) mg/dL Calcium 9.2 (8.4-10.2) mg/dL AST 58 (17-59) U/L ALT 65 H (4-49) U/L Alkaline Phosphatase 109 (38-126) U/L Total Protein 6.7 (6.3-8.2) g/dL Albumin 4.1 (3.5-5.0) g/dL Current Medications Generic Name Dose Route Start Last Admin Trade Name Freq PRN Reason Stop Dose Admin Amlodipine Besylate 10 mg 08/11/24 21:00 08/11/24 20:22 Amlodipine 10 Mg Tab PO 10 mg HS CONSUELO Administration Aspirin 81 mg 08/13/24 09:00 Aspirin 81 Mg PO DAILY CONSUELO Atorvastatin Calcium 80 mg 08/11/24 21:00 08/11/24 20:22 Atorvastatin 80 Mg Tab PO 80 mg HS CONSUELO Administration Benzocaine 1 spray 08/12/24 13:58 Benzocaine [place] 1 Can TOPICAL TID PRN Skin Irritation Duloxetine HCl 30 mg 08/12/24 11:00 08/12/24 11:57 Duloxetine Hcl 30 Mg Capsule.Dr PO 30 mg DAILY CONSUELO Administration Fentanyl Citrate 50 mcg 08/12/24 13:58 Fentanyl (Pf) 50 Mcg/Ml 5 Ml Amp IVP 08/13/24 07:58 ONCE PRN Pre-Op Insulin Aspart 0 unit 08/11/24 12:30 08/12/24 12:05 Insulin Aspart (Novolog) 100 Unit/Ml Vial SQ Not Given ACHS [facility] Protocol Lisinopril 40 mg 08/11/24 21:00 08/11/24 20:22 Lisinopril 20 Mg Tab PO 40 mg HS CONSUELO Administration Midazolam HCl 1 mg 08/12/24 13:58 Midazolam 2 Mg/2 Ml Vial IV 08/13/24 07:58 ONCE PRN Pre-Op Pantoprazole Sodium 40 mg 08/12/24 07:30 08/12/24 06:34 Pantoprazole 40 Mg Tablet PO 40 mg [id number] CONSUELO Administration Psyllium Hydrophilic Mucilloid 6 gm 08/11/24 21:00 08/12/24 08:47 Psyllium Husk 100% 6 Gm Packet PO 6 gm BID CONSUELO Administration Ticagrelor 90 mg 08/12/24 21:00 Ticagrelor 90 Mg Tab PO BID CONSUELO Intake and Output 08/11/24 08/12/24 08/12/24 22:59 06:59 14:59 Intake Total 500 118 Output Total 200 Balance 500 -200 118 Intake: Oral 500 118 Output: Urine 200 Other: Weight 99.5 kg 08/12/24 06:44 08/12/24 06:44
[2024-08-12] MEDS: TICAGRELOR 90 MG TAB PO STA (14:36)
[2024-08-12] MEDS: BUTALB/APAP/CAFF 50-325-40MG TAB PO PRN (15:38)
[2024-08-12 16:39] LABS: Glucose,Whole Blood 110 mg/dL (70-110)
[2024-08-12 20:07] LABS: Glucose,Whole Blood 108 mg/dL (70-110)
[2024-08-12] MEDS: TICAGRELOR 90 MG TAB PO SCH (20:31)
[2024-08-12] MEDS: SODIUM CHLORIDE 0.9% 1,000 ML IV SCH (20:37)
--- NOTE | 2024-08-12 22:10 | P.PN ---
Subjective Progress Note Date: 08/12/24 HISTORY OF PRESENT ILLNESS: 49-year-old with active medical history of CVA/TIA, hypertension, hyperlipidemia, obstructive sleep apnea, BPH, skin cancer who has slight residual of left-sided weakness from all the stroke happened 2 years ago Will patient was hospitalized in town back in April 19, 2022 and ended up seeing neurology and had quite good workup at the time including CT of the brain, CTA, echocardiogram, MRI of the brain conclusion that time was that he had severe symptom of vertigo and off-balance with diplopia and vertebrobasilar insufficiency left him with slight stroke with right-sided numbness with worsening hiccup at the time found to have 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 He recovered at time and continue on Plavix along with aspirin better control of blood pressure along with quit smoking completely and change his sedentary lifestyle blood sugar was mild elevated was monitored as well all along. Study from our charting does not look like patient had transesophageal at the time but had transthoracic which failed to show any atrial septal defect or ventricular septal defect with normal valvular heart disease and pericardium. Did not pursue further testing such as longer-term heart monitor or transesophageal echocardiogram Patient was fishing in [place] about 3 hours from the [place] border when developed around 11:00 at night severe numbness and significant weakness of the left side of his body was delay going to the emergency room till around 2:00 or was seen in the emergency department in [place] CAT scan of the brain was performed and patient was told that he is having stroke his family decide to drive him across the bridge back to [facility] straight to the emergency department at [facility] where was seen and evaluated CAT scan of the brain performed shows no acute bleed or mass effect multiple remote infarcts in the left cerebral hemisphere found affecting the left parietal cortex and subcortical white matter also there is remote lacunar infarct in the region of the left insular cortex. The posterior fossa including the brainstem fourth ventricle and cerebral pontine angle appeared to be grossly normal. Patient also had CT angiogram which shows occluded V4 segment of the left vertebral artery mainstem of the left MCA demonstrate multiple collateral circulation and inferior aspect of the basilar artery with markedly reduced c aliber of the V4 segment of the right vertebral artery and this is stable compared to February 2022 when patient had his last stroke. Also recommending to have MRI of the brain and carotid ultrasound as well. Lab value this time again shows normal CBC, PT/INR, chemistry with blood sugar mildly elevated at 114. Upon presentation patient's vitals were pretty stable with pulse 75 respiration 17 blood pressure 134/99 was diastolic slightly with elevated with blood pressure mean was 110 pulse ox was 98 percentile. After being in the emergency department starting patient on hydralazine and Vasotec IV improve his blood pressure. Patient be hospitalized again for stroke this time he has significant weakness in the left upper extremity also has significant drop in foot of the left side compared to the right side this is not new because his stroke last time was mostly on the right side. 08/12/2024: He is remain with significant weakness in the left upper extremity lower extremity is weak but stronger than the upper extremity right side is normal patient still having significant problem with expressive aphasia. I was seeing the patient when neurology came and and apparently review the last admission and 22 at this admission at this time this time appears to be there is a basilar thrombus not quite sure if thrombectomy is a possibility or not but we have to be quite careful to keep the blood pressure not too low because patient had significant stenosis of the smaller vessel in the brain which can create more dilemma for new stroke. Also left a consult for cardiology because of looking into having to do transesophageal echocardiogram and loop recorder monitor for longer term monitor to make sure patient does not have any problem consistent with A-fib It seemed that both procedure are planning for tomorrow. Anticoagulation herman patient was switched from Plavix to Brilinta for better management of the short on the long run for his stroke. REVIEW OF SYSTEMS: CONSTITUTIONAL: Well-developed no acute respiratory distress. EYES: No icterus sclerae, no conjunctivitis. EARS, NOSE, MOUTH, THROAT, and FACE: No sore throat, lymphadenopathy, carotid bruits or deformity. RESPIRATORY: No SOB cough or wheezes. CARDIOVASCULAR: No CP, Palpitation, PND, Orthopnea, or angina. GASTROINTESTINAL: No Abd pain, Nausea or vomiting, no Diarrhea or constipation, No GI Bleed, no distention or masses. GENITOURINARY: Negative for Hematuria or UTI, no kidney stones. INTEGUMENT/BREAST: Negative for any muscular injury with mild osteoarthritis.. HEMATOLOGIC/LYMPHATIC: Negative for bleed or purpura. MUSCULOSKELTAL: Generalized myalgia and arthralgia. NEURLOGICAL: CVA with left-sided weakness slightly droopy face to the left side as well with dropping foot in the left side compared to right side. BEHAVIORAL/PSYCH: Negative. ENDOCRINE: Negative. PHYSICAL EXAMINATION: General Appearance: Alert, cooperative, no distress, appears stated age. Slightly bit anxious. Neck HEENT: Supple, no lymphadenopathy, no thyroid enlargement, no carotid bruits. Lungs: Clear to auscultation without crackles or wheezes no rhonchi, no deformity. Chest Wall: Chest wall normal expansion with deep inspiration no tenderness and no deformity was found on exam, no costochondral pain or discomfort. Heart: Regular rate and rhythm, S1, S2 normal, no murmur, rub or gallop. Back: Symmetric, no curvature, ROM normal, no CVA tenderness. Abdomen: Soft, non-tender, bowel sounds active all four quadrants, no masses, no organomegaly. Extremities: Extremities normal, atraumatic, no cyanosis or edema. Pulses: 2+ and symmetric. Skin: Skin color, texture, tugor normal, no rashes or lesions. Neurologic: Alert oriented x3 cranial nerves II through XII show slight defect in cranial nerve VII on the left side, significant weakness in the left side compared to the right side specially the left upper extremity with strength 2 out of 5 compared to 4 out of 5 in the left side with significant drop in foot in the left foot as well not able to do gait exam. ASSESSMENT AND PLAN: _Stroke: With significant weakness in the left side specially left upper extremity along with expressive aphasia, review CTA shows basilar thrombus, patient seen neurology he is scheduled for MRI and MRI of the brain also schedu led to see cardiology for going on for transesophageal echocardiogram and loop recorder monitor for making sure there is no vegetation or atrial septal defect or ventricular septal defect can explain the thrombus also to make sure there is no A-fib. Further management consistent with physical therapy, speech, occupational therapy will be done as needed. Patient might benefit from going to inpatient rehab as well specially with the current weakness balance problems having currently. _Slight deformity of the vertebral artery mostly on the left side that should affect patient right side this time his stroke is in the left side mostly causing more problem again medically etiology no A-fib was found continue workup try to find explanation for stroke patient will be watched on heart monitor try to control his blood pressure pulse rate and cholesterol as well. 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 _Hypertension: Despite starting Vasotec and hydralazine beside the amlodipine 10 mg a day we have to be quite bit careful not to drop her blood pressure below 130 because patient might have hypoperfusion might extend the stroke further if that happened. _Hyperlipidemia remain on atorvastatin 80 mg a day continue vacation. _Hyperglycemia: Patient will start Accu-Chek sliding scales coverage will add SGLT2 product Tradjenta in the hospital and Jardiance as an outpatient. _Dysphagia: Patient be seen speech therapy but he was a clear on bedside swallowing yesterday and able to eat. _Expressive aphasia: Will consult speech as well for speech therapy despite the stroke has affected the right side of the brain which not supposed to affect the speech center but patient is having difficult problem with expressing himself. _BPH: Watch for any urinary retention. _Anticoagulation: Switch to Brilinta from Plavix and continue aspirin at this point. Discussion: Patient seen neurology, will be seen cardiology for transesophageal echocardiogram and loop recorder monitor and still talking to interventional radiologist whether patient can benefit from doing basilar thrombectomy or not. Objective - Vital Signs Vital signs: Vital Signs Temp 98 F 08/12/24 08:45 Pulse 76 08/12/24 08:45 Resp 16 08/12/24 08:45 BP 102/61 08/12/24 08:45 Pulse Ox 97 08/12/24 08:45 FiO2 Intake & Output 08/11/24 08/12/24 08/12/24 18:59 06:59 18:59 Intake Total 500 118 Output Total 200 Balance 500 -200 118 Weight 99.79 kg 99.5 kg Intake: Oral 500 118 Output: Urine 200 Other: # Voids 0 # Bowel Movements 0 - Labs CBC & Chem 7: 08/12/24 06:44 08/12/24 06:44 Labs: Abnormal Lab Results - Last 24 Hours (Table) 08/11/24 08/11/24 08/11/24 Range/Units 10:50 10:50 10:50 WBC 11.3 H (3.8-10.6) k/uL Neutrophils # 8.2 H (1.3-7.7) k/uL PT 9.9 L (10.0-12.5) sec Chloride (98-107) mmol/L Carbon Dioxide 19 L (22-30) mmol/L Creatinine 0.65 L (0.66-1.25) mg/dL Glucose 114 H (74-99) mg/dL POC Glucose (mg/dL) (70-110) mg/dL ALT 64 H (4-49) U/L 08/12/24 08/12/24 Range/Units 06:23 06:44 WBC (3.8-10.6) k/uL Neutrophils # (1.3-7.7) k/uL PT (10.0-12.5) sec Chloride 108 H (98-107) mmol/L Carbon Dioxide (22-30) mmol/L Creatinine (0.66-1.25) mg/dL Glucose 106 H (74-99) mg/dL POC Glucose (mg/dL) 117 H (70-110) mg/dL ALT 65 H (4-49) U/L
[2024-08-13 02:00] VITALS: BP 132/79; PULSE 61; RESP 16; TEMP 97.4
[2024-08-13] MEDS ORDERED: ASPIRIN 81 MG PO SCH (09:00)
--- NOTE | 2024-08-19 08:34 | P.DS ---
Providers Date of admission: 08/11/24 11:33 Attending physician: Kilo Moyer Consults: 08/11/24 11:34 Consult Physician Urgent Consulting Provider: Skip Frye Consult Reason/Comments: CVA Do you want consulting provider notified?: Yes 08/11/24 12:17 Consult Physician Routine Consulting Provider: Carson Block Consult Reason/Comments: BESSY and Loop Do you want consulting provider notified?: Yes Primary care physician: Kilo João [facility] Course: HISTORY OF PRESENT ILLNESS: 49-year-old with active medical history of CVA/TIA, hypertension, hyperlipidemia, obstructive sleep apnea, BPH, skin cancer who has slight residual of left-sided weakness from all the stroke happened 2 years ago Will patient was hospitalized in town back in April 19, 2022 and ended up seeing neuro logy and had quite good workup at the time including CT of the brain, CTA, echocardiogram, MRI of the brain conclusion that time was that he had severe symptom of vertigo and off-balance with diplopia and vertebrobasilar insufficiency left him with slight stroke with right-sided numbness with worsening hiccup at the time found to have 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 He recovered at time and continue on Plavix along with aspirin better control of blood pressure along with quit smoking completely and change his sedentary lifestyle blood sugar was mild elevated was monitored as well all along. Study from our charting does not look like patient had transesophageal at the time but had transthoracic which failed to show any atrial septal defect or ventricular septal defect with normal valvular heart disease and pericardium. Did not pursue further testing such as longer-term heart monitor or transesophageal echocardiogram Patient was fishing in [place] about 3 hours from the [place] border when developed around 11:00 at night severe numbness and significant weakness of the left side of his body was delay going to the emergency room till around 2:00 or was seen in the emergency department in [place] CAT scan of the brain was performed and patient was told that he is having stroke his family decide to drive him across the bridge back to [facility] straight to the emergency department at [facility] where was seen and evaluated CAT scan of the brain performed shows no acute bleed or mass effect multiple remote infarcts in the left cerebral hemisphere found affecting the left parietal cortex and subcortical white matter also there is remote lacunar infarct in the region of the left insular cortex. The posterior fossa including the brainstem fourth ventricle and cerebral pontine angle appeared to be grossly normal. Patient also had CT angiogram which shows occluded V4 segment of the left verteb ral artery mainstem of the left MCA demonstrate multiple collateral circulation and inferior aspect of the basilar artery with markedly reduced caliber of the V4 segment of the right vertebral artery and this is stable compared to February 2022 when patient had his last stroke. Also recommending to have MRI of the brain and carotid ultrasound as well. Lab value this time again shows normal CBC, PT/INR, chemistry with blood sugar mildly elevated at 114. Upon presentation patient's vitals were pretty stable with pulse 75 respiration 17 blood pressure 134/99 was diastolic slightly with elevated with blood pressure mean was 110 pulse ox was 98 percentile. After being in the emergency department starting patient on hydralazine and Vasotec IV improve his blood pressure. Patient be hospitalized again for stroke this time he has significant weakness in the left upper extremity also has significant drop in foot of the left side compared to the right side this is not new because his stroke last t ebenezer was mostly on the right side. 08/12/2024: He is remain with significant weakness in the left upper extremity lower extremity is weak but stronger than the upper extremity right side is normal patient still having significant problem with expressive aphasia. I was seeing the patient when neurology came and and apparently review the last admission and 22 at this admission at this time this time appears to be there is a basilar thrombus not quite sure if thrombectomy is a possibility or not but we have to be quite careful to keep the blood pressure not too low because patient had significant stenosis of the smaller vessel in the brain which can create more dilemma for new stroke. Also left a consult for cardiology because of looking into having to do transesophageal echocardiogram and loop recorder monitor for longer term monitor to make sure patient does not have any problem consistent with A-fib It seemed that both procedure are planning for tomorrow. Anticoagulation herman patient was switched from Plavix to Brilinta for better management of the short on the long run for his stroke. 08/13/2024: Continue to have significant weakness in the left side specially the left upper extremity despite the fact the patient was scheduled to have transesophageal echocardiogram and loop recorder monitor by cardiology neurology made special effort to contact neurosurgery and interventional radiologist at [facility] for possible thrombectomy of the basilar artery in the posterior fossa. Apparently was excepted to be transferred to [facility] for possible thrombectomy. Transfer was process and set for security guard supervisor on 08/13/2024. REVIEW OF SYSTEMS: CONSTITUTIONAL: Well-developed no acute respiratory distress. EYES: No icterus sclerae, no conjunctivitis. EARS, NOSE, MOUTH, THROAT, and FACE: No sore throat, lymphadenopathy, carotid bruits or deformity. RESPIRATORY: No SOB cough or wheezes. CARDIOVASCULAR: No CP, Palpitation, PND, Orthopnea, or angina. GASTROINTESTINAL: No Abd pain, Nausea or vomiting, no Diarrhea or constipation, No GI Bleed, no distention or masses. GENITOURINARY: Negative for Hematuria or UTI, no kidney stones. INTEGUMENT/BREAST: Negative for any muscular injury with mild osteoarthritis.. HEMATOLOGIC/LYMPHATIC: Negative for bleed or purpura. MUSCULOSKELTAL: Generalized myalgia and arthralgia. NEURLOGICAL: CVA with left-sided weakness slightly droopy face to the left side as well with dropping foot in the left side compared to right side. BEHAVIORAL/PSYCH: Negative. ENDOCRINE: Negative. PHYSICAL EXAMINATION: General Appearance: Alert, cooperative, no distress, appears stated age. Slightly bit anxious. Neck HEENT: Supple, no lymphadenopathy, no thyroid enlargement, no carotid bruits. Lungs: Clear to auscultation without crackles or wheezes no rhonchi, no deformity. Chest Wall: Chest wall normal expansion with deep inspiration no tenderness and no deformity was found on exam, no costochondral pain or discomfort. Heart: Regular rate and rhythm, S1, S2 normal, no murmur, rub or gallop. Back: Symmetric, no curvature, ROM normal, no CVA tenderness. Abdomen: Soft, non-tender, bowel sounds active all four quadrants, no masses, no organomegaly. Extremities: Extremities normal, atraumatic, no cyanosis or edema. Pulses: 2+ and symmetric. Skin: Skin color, texture, tugor normal, no rashes or lesions. Neurologic: Alert oriented x3 cranial nerves II through XII show slight defect in cranial nerve VII on the left side, significant weakness in the left side compared to the right side specially the left upper extremity with strength 2 out of 5 compared to 4 out of 5 in the left side with significant drop in foot in the left foot as well not able to do gait exam. ASSESSMENT AND PLAN: _Stroke: With significant weakness in the left side specially left upper extremity along with expressive aphasia, review CTA shows basilar thrombus, patient seen neurology he is scheduled for MRI and MRI of the brain also scheduled to see cardiology for going on for transesophageal echocardiogram and loop recorder monitor for making sure there is no vegetation or atrial septal defect or ventricular septal defect can explain the thrombus also to make sure there is no A-fib. Further management consistent with physical therapy, speech, occupational therapy will be done as needed. Patient might benefit from going to inpatient rehab as well specially with the current weakness balance problems having currently. _Slight deformity of the vertebral artery mostly on the left side that should affect patient right side this time his stroke is in the left side mostly causing more problem again medically etiology no A-fib was found continue workup try to find explanation for stroke patient will be watched on heart monitor try to control his blood pressure pulse rate and cholesterol as well. 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 _Hypertension: Despite starting Vasotec and hydralazine beside the amlodipine 10 mg a day we have to be quite bit careful not to drop her blood pressure below 130 because patient might have hypoperfusion might extend the stroke further if that happened. _Hyperlipidemia remain on atorvastatin 80 mg a day continue vacation. _Hyperglycemia: Patient will start Accu-Chek sliding scales coverage will add SGLT2 product Tradjenta in the hospital and Jardiance as an outpatient. _Dysphagia: Patient be seen speech therapy but he was a clear on bedside swallowing yesterday and able to eat. _Expressive aphasia: Will consult speech as well for speech therapy despite the stroke has affected the right side of the brain which not supposed to affect the speech center but patient is having difficult problem with expressing himself. _BPH: Watch for any urinary retention. _Anticoagulation: Switch to Brilinta from Plavix and continue aspirin at this point. Discussion: Attempt to transfer patient to [facility] for possible thrombe ctomy on the basilar artery who is excepted in transfer was set up for security guard supervisor on 08/13/2024. Hospital course: The patient was hospitalized on 08/11/2024 he was in [place] with his family when he developed to have around 11:00 midnight severe numbness and significant weakness of the left side of his body he did not make it to the emergency room until around 2:00 after midnight [place] time CAT scan of the brain was performed and he was diagnosed with a stroke no attempt for tPA was done and apparently family decided to transfer the patient by their own car to [place] [id number] and up coming to the emergency department to [facility] jaleel Turner at the time was seen was already passed 6 hours from his symptoms was not a candidate for tPA CTA shows occluded V4 segment of the left vertebral artery Trisha of the left MCA demonstrate multiple collateral circulation and inferior aspect of the basilar artery with marked reduced caliber of the right vertebral artery which is stable compared to 2021 MRI of the brain was recommended the patient was admitted to see neurology possible vascular consult cardiology for possible transesophageal echocardiogram and loop recorder monitor. Neurologycontacting Curt Pittman for possible thrombectomy of the basilar artery and apparently patient was excepted and transferred security guard supervisor on 08/13/2024. Time spent on patient discharge was 32 minutes. Plan - Discharge Summary Discharge Rx Participant: No New Discharge Prescriptions: No Action Clopidogrel [Plavix] 75 mg PO DAILY 30 Days #30 tab amLODIPine BESYLATE/BENAZEPRIL [Lotrel 10-40 mg Capsule] 1 cap PO HS Psyllium Husk [Fiber Capsule] 0.8 gm PO BID Atorvastatin [Lipitor] 80 mg PO HS Discharge Medication List Atorvastatin [Lipitor] 80 mg PO HS 04/19/22 [History] Clopidogrel [Plavix] 75 mg PO DAILY 30 Days #30 tab 04/21/22 [Rx] Psyllium Husk [Fiber Capsule] 0.8 gm PO BID 08/11/24 [History] amLODIPine BESYLATE/BENAZEPRIL [Lotrel 10-40 mg Capsule] 1 cap PO HS 08/11/24 [History] Follow up Appointment(s)/Referral(s): Kilo Moyer MD [Primary Care Provider] - 1-2 days Discharge Disposition: OTHER INSTITUTION NOT DEFINED
== END 2024-08-13 02:56 | disposition short-term general hospital (02) | DRG 65 ==
LOC: EC 10:39 → 3SCARD 11:33
PROVIDERS: ADMIT Internal Medicine Geriatric Medicine; ATTEND Internal Medicine Geriatric Medicine
DX: I63.9 Cerebral infarction, unspecified (principal); G45.0 Vertebro-basilar artery syndrome; G81.94 Hemiplegia, unspecified affecting left nondominant side; I69.351 Hemiplegia and hemiparesis following cerebral infarction affecting right dominant side; H53.2 Diplopia; E78.5 Hyperlipidemia, unspecified; I10 Essential (primary) hypertension; N40.0 Benign prostatic hyperplasia without lower urinary tract symptoms; R13.10 Dysphagia, unspecified; R29.810 Facial weakness; R47.01 Aphasia; R29.710 NIHSS score 10; M21.372 Foot drop, left foot; G47.33 Obstructive sleep apnea (adult) (pediatric); R47.81 Slurred speech; R06.6 Hiccough; R73.9 Hyperglycemia, unspecified; R47.1 Dysarthria and anarthria; Z79.02 Long term (current) use of antithrombotics/antiplatelets; Z79.899 Other long term (current) drug therapy; Z85.828 Personal history of other malignant neoplasm of skin; Z87.891 Personal history of nicotine dependence; Z28.310 Unvaccinated for COVID-19; Z28.21 Immunization not carried out because of patient refusal; Z79.4 Long term (current) use of insulin
CPT/HCPCS: 36415; 70450; 70496; 70498; 71046; 80053; 80061; 82550; 84484; 85025; 85027; 85610; 85730; 93005; 93306; 93880; 94760; 99291

== ENCOUNTER → 2024-09-18 | Outpatient (CLI) | payer BC ==
--- NOTE | 2024-09-18 17:02 | XR ---
EXAMINATION TYPE: XR chest 2V DATE OF EXAM: 09/18/2024 4:58 PM COMPARISON: Chest radiographs from 08/11/2024 CLINICAL INDICATION: Male, 49 years old with history of [id number] SOB,CEREBRAL INFARCT; [facility] TECHNIQUE: XR chest 2V Frontal and lateral views of the chest. FINDINGS: Lungs/Pleura: There is no evidence of pleural effusion, focal consolidation, or pneumothorax. Pulmonary vascularity: Unremarkable. Heart/mediastinum: Cardiomediastinal silhouette is unremarkable. Musculoskeletal: No acute osseous pathology. IMPRESSION: No acute cardiopulmonary disease/process. [facility], , 09/18/2024 5:00 PM
== END | disposition home or self-care (01) ==
LOC: RADXRYALE 16:45
PROVIDERS: ATTEND Family Medicine
DX: I69.354 Hemiplegia and hemiparesis following cerebral infarction affecting left non-dominant side (principal); I69.320 Aphasia following cerebral infarction; R06.02 Shortness of breath
CPT/HCPCS: 71046

== ENCOUNTER 2024-10-25 10:29 | Day surgery (SDC) | payer BC ==
[2024-10-25] MEDS: IV FLUID CONTINUATION 1,000 ML IV ONE (10:44)
[2024-10-25 10:45] VITALS: TEMP 98.1
[2024-10-25] MEDS: SODIUM CHLORIDE 0.9% 1,000 ML IV SCH (10:45)
[2024-10-25] MEDS: BENZOCAINE SPRAY 1 EACH MM ONE (11:48)
[2024-10-25] MEDS: MIDAZOLAM 2 MG/2 ML VIAL IVP ONE ×2 (12:04→12:08)
[2024-10-25] MEDS: fentaNYL (PF) 50 MCG/1 ML VIAL IVP ONE ×2 (12:05→12:06)
[2024-10-25] MEDS: LIDOCAINE 1% INJ 10MG/ML (20 ML MDV) SQ ONE (12:34)
[2024-10-25 12:50] VITALS: RESP 12
--- NOTE | 2024-10-25 13:42 | P.TEE ---
Description of Procedure(s): Procedure performed: Transesophageal Echocardiogram with color flow doppler, pulsed wave doppler and continuous wave doppler, moderate conscious sedation Moderate conscious sedation: Moderate conscious sedation was supplied with direct supervision of myself using Versed and Fentanyl. Complications: none Indications: stroke PROCEDURE: After the risks, benefits and alternatives of the above mentioned procedure was explained in detail with the patient, informed consent was obtained. Patient was brought to the lab in a fasting state. Patient was given IV Versed and Fentanyl for sedation. The throat was sprayed with Hurricane to anesthetize the throat. A lubricated Omni probe was then introduced into the esophagus and stomach and multiple views were obtained. 2D echo with color flow doppler, pulsed wave doppler and continuous wave doppler was utilized. Agitated saline bubbles were injected to assess for any intra-atrial shunt. The probe was then removed. Patient tolerated the procedure well. Patient was transferred to the post procedure area in stable and satisfactory condition. FINDINGS: 1. The aortic valve is tricuspid without significant stenosis and trace aortic insufficiency. 2. The mitral valve appears be normal with mild regurgitation. 3. Tricuspid valve appears to be normal. 4. The interatrial septum is intact. No evidence of PFO. 5. Left atrial appendage is free of clot. 6. Left ventricular ejection fraction 55%
--- NOTE | 2024-10-25 13:44 | P.PCN ---
Description of Procedure: Procedure: Insertion of Linq loop recorder Indication: Stroke CONSENT:I have discussed the risks, benefits and alternative therapies for the above-mentioned procedure. The patient has indicated understanding and acceptance of the risks and procedures discussed. PROCEDURE: Patient was brought to the catheterization lab in a fasting state. Patient was prepped and draped in the usual fashion. 1% lidocaine was used to anesthetize the area of the left third intercostal space. Using the loop recorder incision device, a small 0.5 cm incision was made in the left 3rd intercostal space. Next the Linq loop recorder was deployed in the 3rd intercostal space subcutaneously using the insertion tool. Thresholds were checked and were excellent at 0.4V. Next the incision was closed using Dermabond. Steristrips were placed over the incision and the procedure was completed. The patient tolerated the procedure well. The patient was transported to the post cath holding area in stable condition. Linq loop recorder serial number: [id number]
[2024-10-25 13:45] VITALS: BP 156/92; PULSE 65
== END 2024-10-25 13:45 | disposition home or self-care (01) ==
LOC: CATHCVL 10:29
PROVIDERS: ATTEND Internal Medicine
DX: I34.0 Nonrheumatic mitral (valve) insufficiency (principal); I35.0 Nonrheumatic aortic (valve) stenosis; I25.10 Atherosclerotic heart disease of native coronary artery without angina pectoris; I10 Essential (primary) hypertension; E78.5 Hyperlipidemia, unspecified; I44.7 Left bundle-branch block, unspecified; Z79.82 Long term (current) use of aspirin; Z95.0 Presence of cardiac pacemaker; Z79.899 Other long term (current) drug therapy
CPT/HCPCS: 93312; 93320; 93325; 33285; J2250; J0690; J2003; J3010

== ENCOUNTER → 2024-12-26 | Outpatient (CLI) | payer BC | END | disposition home or self-care (01) | LOC: LABWHC1 11:56 | PROVIDERS: ATTEND Psychiatry & Neurology Neurology | DX: R06.02 Shortness of breath (principal) | CPT/HCPCS: 36415; 85379 ==